=== PATIENT | female | born 1955 | race Caucasian/White ===

== ENCOUNTER 2020-08-27 14:34 | Outpatient (CLI) | payer BC, SELFPAY ==
--- NOTE | ~2020-08-27 | DEXA_ITS ---
Bone Density Report Name: Liyah Shah Age: 64 Sex: Female Ethnicity: White Date of : 1955 Indication: osteopenia; height loss; hysterectomy; Referring Provider: SHEN PLAZA Study: Bone densitometry was performed. Exam Date: August 27, 2020 Accession number: [id number] Bone Density: Region BMD T-score Z-score Classification AP Spine (L1-L4) 0.853 -1.8 0.0 Osteopenia Femoral Neck (Left) 0.663 -1.7 -0.2 Osteopenia Total Hip (Left) 0.833 -0.9 0.3 Normal Total Hip Bilateral Avg 0.843 -0.8 0.4 Normal Femoral Neck (Right) 0.660 -1.7 -0.2 Osteopenia Total Hip (Right) 0.851 -0.7 0.5 Normal World Health Organization criteria for BMD impression classify patients as: Normal (T-score at or above -1.0), Osteopenia (T-score between -1.0 and -2.5), or Osteoporosis (T-score at or below -2.5). 10-year Fracture Risk(1): Major Osteoporotic Fracture 9.3% Hip Fracture 1.1% Reported Risk Factors: [place] (), Neck BMD=0.660, BMI=24.8 (1) FRAX(R) Version 3.08. Fracture probability calculated for an untreated patient. Fracture probability may be lower if the patient has received treatment. Previous Exams: Region Exam Age BMD T-score BMD Change BMD Change Date g/cm2 vs Baseline vs Previous AP Spine(L1-L4) 08/27/2020 64 0.853 -1.8 0.015(1.8%) 0.015(1.8%) 12/08/2017 61 0.838 -1.9 Total Hip(Left) 08/27/2020 64 0.833 -0.9 -0.070(-7.8%)* -0.070(-7.8%)* 12/08/2017 61 0.903 -0.3 Total Hip(Right) 08/27/2020 64 0.851 -0.7 -0.077(-8.3%)* -0.077(-8.3%)* 12/08/2017 61 0.928 -0.1 *Denotes significance at 95% confidence level, LSC for AP Spine = 0.022 g/cm2, LSC for Total Hip = 0.027 g/cm2 Clinical Information Provided by Patient: Has used the following medications: Vitamin D, Calcium Has the following medical conditions: Hysterectomy Patient maximum height was 67 Menopause Age: 51 Drinks caffeinated beverages Onset of menses at age 11 Number of children 2 Impression: The patient has low bone mass, based on the Total Spine T-score. The patient has an estimated ten-year risk of hip fracture of 1.1% and an estimated ten-year risk of major fracture of 9.3%, based on the WHO FRAX algorithm. The BMD for the Total Hip(Left) decreased, changing by -7.8% since the last DXA exam. The BMD for the Total Hip(Right) decreased, changing by -8.3% since the last DXA exam. Discussion: BONE DENSITY IS LOW AT ONE OR MORE SKELETAL SITES. Th
== END 2020-08-27 14:35 | disposition home or self-care (01) ==
LOC: ANHIMG 14:39
PROVIDERS: PCP Internal Medicine; Visit Provider Internal Medicine
DX: Z78.0 Asymptomatic menopausal state (principal); M85.852 Other specified disorders of bone density and structure, left thigh; M85.851 Other specified disorders of bone density and structure, right thigh
CPT/HCPCS: 77080

== ENCOUNTER → 2021-06-22 02:57 | Outpatient (CLI) | payer MEDICARE, OTHER, SELFPAY ==
[2021-06-22 22:41] LABS: SARS-CoV-2 RNA PCR Negative
== END ==
PROVIDERS: PCP Internal Medicine; Visit Provider Internal Medicine
DX: Z20.822 Contact with and (suspected) exposure to COVID-19 (principal)
CPT/HCPCS: C9803; U0003; U0005

== ENCOUNTER 2021-06-29 09:34 | Outpatient (CLI) | payer MEDICARE, OTHER, SELFPAY ==
--- NOTE | ~2021-06-29 | MM_ITS ---
EXAMINATION: MM screening kaur BI w michelle HISTORY: Screening mammogram TECHNIQUE: Craniocaudal and mediolateral oblique 3-D tomosynthesis images were obtained and synthetic 2-D images were generated. CAD analysis was submitted and interpreted. COMPARISON: 10/09/2019, 09/05/2018, 09/22/2017 bilateral digital screening mammogram examinations BREAST PARENCHYMAL COMPOSITION: There are scattered areas of fibroglandular density. FINDINGS: There is no evidence of suspicious mass, calcification, or architectural distortion to sugg est malignancy in either breast. There has been no suspicious interval change. IMPRESSION: 1. No mammographic evidence of malignancy. 2. Recommend routine screening mammography in one year. BI-RADS Category 1: Negative Reviewed, dictated and finalized at location A.
== END 2021-06-29 09:35 | disposition home or self-care (01) ==
LOC: ANHIMG 09:38
PROVIDERS: PCP Internal Medicine
DX: Z12.31 Encounter for screening mammogram for malignant neoplasm of breast (principal)
CPT/HCPCS: 77063; 77067

== ENCOUNTER → 2021-08-01 03:48 | Outpatient (CLI) | payer MEDICARE, OTHER, SELFPAY ==
[2021-08-01 19:59] LABS: SARS-CoV-2 RNA PCR Negative
== END ==
PROVIDERS: PCP Internal Medicine; Visit Provider Internal Medicine
DX: Z20.822 Contact with and (suspected) exposure to COVID-19 (principal)
CPT/HCPCS: C9803; U0003; U0005

== ENCOUNTER → 2022-05-09 00:14 | Outpatient (CLI) | payer MEDICARE, OTHER, SELFPAY ==
[2022-05-09 11:19] LABS: SARS-CoV-2 RNA PCR Negative
== END ==
PROVIDERS: PCP Internal Medicine; Visit Provider Internal Medicine
DX: R68.89 Other general symptoms and signs (principal); Z20.822 Contact with and (suspected) exposure to COVID-19
CPT/HCPCS: C9803; U0003; U0005

== ENCOUNTER 2022-09-02 09:16 | Outpatient (CLI) | payer MEDICARE, OTHER, SELFPAY ==
--- NOTE | ~2022-09-02 | DEXA_ITS ---
Bone Density Report Name: RADHA BIRMINGHAM Age: 66 Sex: Female Ethnicity: White Date of : 1955 Indication: osteopenia; height loss; hysterectomy; postmenopausal Referring Provider: AIDEN DONOHUE Study: Bone densitometry was performed. Exam Date: September 02, 2022 Accession number: [id number] Bone Density: Region BMD T-score Z-score Classification AP Spine(L1-L4) 0.867 -1.6 0.2 Osteopenia Femoral Neck (Left) 0.672 -1.6 0.0 Osteopenia Total Hip (Left) 0.806 -1.1 0.2 Osteopenia Femoral Neck (Right) 0.651 -1.8 -0.2 Osteopenia Total Hip (Right) 0.846 -0.8 0.5 Normal Total Hip Mean 0.826 -1.0 0.4 Normal World Health Organization criteria for BMD impression classify patients as: Normal (T-score at or above -1.0), Osteopenia (T-score between -1.0 and -2.5), or Osteoporosis (T-score at or below -2.5). 10-year Fracture Risk(1): Major Osteoporotic Fracture 10% Hip Fracture 1.4% Reported Risk Factors: [place] (), Neck BMD=0.651, BMI=25.5 (1) FRAX(R) Version 3.08. Fracture probability calculated for an untreated patient. Fracture probability may be lower if the patient has received treatment. Previous Exams: Region Exam Age BMD T-score BMD Change BMD Change Date g/cm2 vs Baseline vs Previous AP Spine (L1-L4) 09/02/2022 66 0.867 -1.6 0.029 (3.4%)* 0.013 (1.6%) 08/27/2020 64 0.853 -1.8 0.015 (1.8%) 0.015 (1.8%) 12/08/2017 61 0.838 -1.9 Total Hip(Left) 09/02/2022 66 0.806 -1.1 -0.097 (-10.8% -0.027 (-3.2%) 08/27/2020 64 0.833 -0.9 -0.070 (-7.8%) -0.070 (-7.8%) 12/08/2017 61 0.903 -0.3 Total Hip(Right) 09/02/2022 66 0.846 -0.8 -0.082 (-8.9%) -0.005 (-0.6%) 08/27/2020 64 0.851 -0.7 -0.077 (-8.3%) -0.077 (-8.3%) 12/08/2017 61 0.928 -0.1 *Denotes significance at 95% confidence level, LSC for AP Spine = 0.022 g/cm2, LSC for Total Hip = 0.027 g/cm2 Clinical Information Provided by Patient: Has the following medical conditions: Hysterectomy Patient maximum height was 67 Menopause Age: 51 Onset of menses at age 13 Number of children 2 Impression: The patient has low bone mass, based on the Right Femoral Neck T-score. The patient has an estimated ten-year risk of hip fracture of 1.4% and an estimated ten-year risk of major fracture of 10%, based on the WHO FRAX algorithm. No significant bone loss was observed. Discussion: BONE DENSITY IS LOW AT ONE OR MORE SKELE
--- NOTE | ~2022-09-02 | MM_ITS ---
EXAMINATION: MM screening kaur BI w michelle HISTORY: Screening mammogram TECHNIQUE: Craniocaudal and mediolateral oblique 3-D tomosynthesis images were obtained and synthetic 2-D images were generated. CAD analysis was submitted and interpreted. COMPARISON: 06/29/2021, 10/09/2019, 09/05/2018 bilateral screening mammogram examinations BREAST PARENCHYMAL COMPOSITION: There are scattered areas of fibroglandular density. FINDINGS: There is no evidence of suspicious mass, calcification, or architectural distortion to sugg est malignancy in either breast. There has been no suspicious interval change. IMPRESSION: 1. No mammographic evidence of malignancy. 2. Recommend routine screening mammography in one year. BI-RADS Category 1: Negative Reviewed, dictated and finalized at location A. F INSPECTOR
== END 2022-09-02 09:17 | disposition home or self-care (01) ==
PROVIDERS: PCP Internal Medicine; Visit Provider Nurse Practitioner
DX: Z12.31 Encounter for screening mammogram for malignant neoplasm of breast (principal); Z78.0 Asymptomatic menopausal state; M85.89 Other specified disorders of bone density and structure, multiple sites
CPT/HCPCS: 77063; 77067; 77080

== ENCOUNTER 2023-12-31 14:32 | Outpatient (CLI) | payer MEDICARE, OTHER, SELFPAY ==
[2023-12-31 15:19] LABS: Influenza A QL RT-PCR Negative (Negative); Influenza B QL RT-PCR Negative (Negative); RSV RNA, RT-PCR Negative (Negative); SARS-CoV-2 RNA PCR Positive (Negative)
== END 2023-12-31 14:33 | disposition home or self-care (01) ==
LOC: ANHLAB 14:33
PROVIDERS: PCP Nurse Practitioner Family; Visit Provider Nurse Practitioner Family
DX: R52 Pain, unspecified (principal); R05.9 Cough, unspecified; J06.9 Acute upper respiratory infection, unspecified
CPT/HCPCS: 87637

== ENCOUNTER 2024-01-21 08:42 | Inpatient (IN) | payer MEDICARE, OTHER, SELFPAY ==
[2024-01-21] VITALS (31 sets, daily range): BP systolic 104–139; BP diastolic 56–95; PULSE 64–208; RESP 14–30; TEMP 36.7–37.2; O2SAT 94–100
--- NOTE | 2024-01-21 | ECHO_ITS ---
Patient Info Name: Liyah Shah Age: 68 years : 1955 Gender: Female Ht: 66 in Wt: 158 lbs BSA: 1.84 m2 HR: 90 bpm BP: 116 / 71 mmHg Heart Rhythm: Atrial Fibrillation Technical Quality: Fair Exam Date: 01/21/2024 4:21 PM Exam Location: Echo Lab Patient Status: Inpatient Admit Date: 01/21/2024 Staff Ordering Physician: Fermin Rashid APRN [employer] Instructor: Tala Mcmullen RDCS Attending Provider: Kameron Amaya MD Referring Physician: Rachid HERRERA; Exam Type: CA echo doppler color flow Study Info Indications - afib rvr, know mitral valve disease Complete two-dimensional, color flow and Doppler transthoracic echocardiogram is performed. Summary 1. Left ventricular chamber dimension is normal. 2. Left ventricular systolic function is normal, estimated at >70%. 3. There is mildly increased left ventricular wall thickness. 4. Right ventricular systolic function is normal. 5. Left atrial chamber dimension is mildly enlarged. 6. Right atrial chamber dimension is mildly enlarged. 7. There is mild mitral valve regurgitation. 8. There is mild tricuspid valve regurgitation. Left Ventricle Left ventricular chamber dimension is normal. Left ventricular systolic function is normal, estimated at >70%. There is mildly increased left ventricular wall thickness. Right Ventricle Right ventricular chamber dimension is normal. Right ventricular systolic function is normal. Left Atria Left atrial chamber dimension is mildly enlarged. Right Atria Right atrial chamber dimension is mildly enlarged. Atrial Septum Intact interatrial septum visualized by color flow imaging. Aortic Valve The aortic valve is trileaflet. There is mild aortic valve sclerosis. There is no aortic valve stenosis. There is no aortic valve regurgitation. Pulmonic Valve The pulmonic valve is not well visualized. There is no pulmonic regurgitation. Mitral Valve There is mild mitral valve regurgitation. Tricuspid Valve There is mild tricuspid valve regurgitation. Pericardium/Pleural The pericardium appears epicardial fat pad. There is no pericardial effusion. Inferior Vena Cava Normal inferior vena cava with >50% collapse upon inspiration consistent with normal right atrial pressure, 3 mmHg. Aorta The aortic root size at the sinus of Valsalva is normal. Left Ventricular Outflow Tract Name Value Normal LVOT 2D LVOT Diameter 2.0 cm LVOT Doppler LVOT Peak Gradient 2 mmHg LVOT Mean Gradient 1 mmHg LVOT VTI 14 cm LVOT VTI/AV VTI Ratio 0.7 LVOT Stroke Volume 41 ml LVOT CO 3.5 l/min LVOT CI 1.9 l/min/m2 Pulmonic Valve Name Value Normal RVOT Doppler RVOT Peak Gradient 1 mmHg PV Doppler
--- NOTE | ~2024-01-21 | US_ITS ---
Duplex Sonography of the left extremity: Indication: Pain, tachycardia Findings: Sagittal and transverse B-mode images as well as color-flow imaging were performed on the l eft femoral and popliteal veins. B-mode examination was done without and with compression in the tra nsverse plane. There is good visualization of the common femoral, proximal profunda femoral, superfi cial femoral, greater saphenous, and popliteal veins. Normal flow was seen on color-flow imaging. No rmal compressibility was demonstrated. Visualized calf veins are also patent. Impression: No evidence of deep vein thrombosis involving the left lower extremity. Reviewed, dictated and finalized at location . Impression: No evidence of deep vein thrombosis involving the left lower extremity.
--- NOTE | ~2024-01-21 | CT_ITS ---
Clinical Indication: Pulmonary embolus CT Scan of the Chest with Contrast: Technique: Contiguous sections were acquired throughout the chest after intravenous administration of 100 cc of Omnipaque 350. Dose reduction technique was used on this scan by utilizing automated expos ure control and iterative reconstruction technique. The dose-length product (DLP) was 225.66 mGy-cm. Findings: There is no evidence of any significant mediastinal, hilar or axillary lymphadenopathy. There is no f illing defect in the pulmonary arterial tree to suggest pulmonary embolus. There is no evidence of ao rtic dissection or aneurysm. There is no evidence of pleural or pericardial effusion. The lungs are clear. No pulmonary nodules or infiltrates are noted. Images through the upper abdomen reveal no abnormalities. Impression: No evidence of pulmonary embolus, aortic dissection, or aortic aneurysm. Clear lungs. Reviewed, dictated and finalized at [facility]. Impression: No evidence of pulmonary embolus, aortic dissection, or aortic aneurysm. Clear lungs.
--- NOTE | ~2024-01-21 | XR_ITS ---
Portable chest x-ray Comparison: 09/10/2018 Clinical History: Chest pain Findings: Lungs are clear, without focal consolidation or pleural effusion. Cardiomediastinal silho uette is stable. Bones and soft tissues are unremarkable. Impression: Clear lungs. Reviewed, dictated and finalized at location . Impression: Clear lungs.
--- NOTE | 2024-01-21 08:48 | ECG_ITS ---
SEE SCANNED COPY FOR CONFIRMED REPORT MTDD
--- NOTE | 2024-01-21 08:50 | ED.WEAKNESS ---
HPI - Weakness General Chief complaint: Weakness Stated complaint: weakness Time Seen by Provider: 01/21/24 08:48 History of Present Illness HPI Narrative: Patient is a 68-year-old female with history of hypertension, hyperlipidemia here with generalized weakness and racing heart. She states she woke up around 7:00 a.m. feeling like her heart was racing and diffusely weak. She notes that she went and had her normal morning bowel movement and it did not change any of her symptoms. Prompted her to present to the emergency department today. She denies any history of abnormal heart rhythm. She denies any history of NM. She has been compliant with her blood pressure medications. No recent travel or surgeries. She does note that she has been recovering from COVID-19 which she came down with approximately 2 weeks ago, did take a course of Paxlovid. She has been taking fuoi-kzk-mndoeni mucus suppressants with Gulfasin and dextromethorphan, last took last night. She additionally did note some palpable visible vessels in her left upper leg this morning, has never noticed these in the past. She was having some left leg cramping yesterday. No history of PE/DVT. Related Data Home Medications Medication Instructions Recorded Confirmed calcium carbonate 600 mg-vitamin 1 tablet PO HS 08/04/19 01/21/24 D3 20 mcg (800 unit) chewable tablet (Caltrate 600 plus D) cholecalciferol (vitamin D3) 50 2,000 unit PO DAILY 08/04/19 01/21/24 mcg (2,000 unit) capsule multivitamin (Daily Multi-Vitamin 1 tablet PO DAILY 05/06/21 01/21/24 tablet) vit C 50 mg-E 15 unit-zinc cit 4.5 1 tablet PO DAILY 03/02/22 01/21/24 mg-lutein 2.5 mg-zeaxan chew tablet ([facility]) omega 9-cgv-izl-fish oil 1,200 mg 1 cap PO DAILY 07/05/23 01/21/24 (144 mg-216 mg) capsule (Fish Oil) dextromethorphan-guaifenesin 20 1 tablet PO Q4H PRN cough 01/21/24 01/21/24 mg-400 mg tablet estradiol 0.01% (0.1 mg/gram) 1 applic vaginal 2XW 01/21/24 01/21/24 vaginal cream Allergies Allergy/AdvReac Type Severity Reaction Status Date / Time No Known Allergies Allergy Verified 01/21/24 08:43 Review of Systems Review of Systems: All systems reviewed & are unremarkable except as noted in HPI and below PMFSH Past Medical History Medical History Essential (primary) hypertension (07/08/19) Hyperlipidemia (07/08/19) Osteopenia Vitamin D deficiency Surgical History Surgical History Hx of bladder repair surgery 2020 Family History Family History Mother Arthritis Scoliosis Hypertension Sibling Patient's brother is in good health Patient's sister is in good health Hypertension Father Acute myocardial infarction Daughter Hypothyroidism Social History Social History Smoking status: Never smoker Second hand tobacco smoke exposure: No Alcohol intake: current Drinks per week: 1 Alcohol use details: occasionally Substance use: never Substance use type: does not use Do You Feel Safe in your Home?: Yes Lack of Transportation: No Lack of Food: Never True Current Housing: I Have Housing Concerned About Future Housing: No Difficulty Paying Gas/Electric Bills: No Difficulty Paying for Meds: No Currently Unemployed: No Education: High School Diploma/GED Difficulty w/ Childcare or Family Care: No Spiritual care concerns: No Exam Narrative: GENERAL: Well-appearing, well-nourished, and in no acute distress. HEAD: Normocephalic, atraumatic. EYES: PERRLA and EOMI. ENT: Nares clear. Mucous membranes moist. NECK: Supple. CHEST: Clear to auscultation. No respiratory distress. HEART: Tachycardic, irregularly irregular. Normal peripheral pulses. ABDOMEN: Soft, nontender, n
[2024-01-21] MEDS: SODIUM CHLORIDE 0.9% IV 1,000 ML 999 ML IV CONT ×2 (08:58→11:45)
[2024-01-21] MEDS: dilTIAZem HCl INJ 25 MG/5 ML VIAL 15 MG IV PUSH (09:06)
[2024-01-21 09:08] LABS: Basophils Absolute Auto 0.1 K/mm3 (0.0-0.1); Basophils Percent Auto 0.9 % (0.2-1.2); Eosinophils Absolute Auto 0.4 K/mm3 (0-0.3); Eosinophils Percent Auto 5.9 % (0-4.4); Hematocrit 44.9 % (37.0-47.0); Hemoglobin 15.2 g/dL (12.0-15.0); Immature Granulocyte Absolute 0.01 K/mm3 (0.00-0.031); Immature Granulocyte Percent A 0.2 % (0-0.5); Lymphocytes Absolute Auto 1.29 K/mm3 (0.9-3.2); Lymphocytes Percent Auto 19.5 % (18.3-44.2); Mean Corpuscular HGB Conc 33.9 g/dl (32-36); Mean Corpuscular Hemoglobin 31.3 pg (26-34); Mean Corpuscular Volume 92.6 fl (80-100); Mean Platelet Volume 10.3 fl (7.4-10.4); Monocytes Absolute Auto 0.6 K/mm3 (0.1-0.6); Monocytes Percent Auto 8.3 % (2.6-8.5); Neutrophils Absolute Auto 4.3 K/mm3 (1.3-6.7); Neutrophils Percent Auto 65.2 % (45.5-73.1); Platelet Count Result 219 k/mm3 (150-375); Red Blood Count 4.85 M/mm3 (4.2-5.4); White Blood Count 6.6 K/mm3 (4.5-10.0)
[2024-01-21] MEDS: dilTIAZem HCl INJ 25 MG/5 ML VIAL 10 MG IV PUSH (09:14)
[2024-01-21 09:18] LABS: Alanine Aminotransferase 36 U/L (6-35); Albumin Level 4.8 g/dL (3.5-5.1); Alkaline Phosphatase 75 U/L (38-126); Anion Gap 13 mmol/L (4-12); Aspartate Amino Transferase 37 U/L (14-36); Bilirubin,Total 1.2 mg/dL (0.2-1.3); Blood Urea Nitrogen 21 mg/dL (7-17); Carbon Dioxide 17 mmol/L (22-30); Chloride 108 mmol/L (98-107); Estimated CRCL calculation 49 ml/min; Estimated Glomerular Filt Rate > 60; Glucose 165 mg/dL (65-110); Potassium 3.9 mmol/L (3.4-5.0); Sodium 138 mmol/L (137-145)
[2024-01-21] MEDS: dilTIAZem HCL 60 MG TABLET PO (09:25)
--- NOTE | 2024-01-21 09:26 | PC.NURSE ---
Pt attempting to provide urine sample on bedside commode
[2024-01-21 09:28] LABS: INR 0.9; Prothrombin Time 12.8 Seconds (11.1-14.7)
[2024-01-21 09:29] LABS: D Dimer 0.53 ug/mL (<0.48); Partial Thromboplastin Time 31.4 Seconds (22.3-36.8)
[2024-01-21 09:30] LABS: NT Pro B Type Natriuretic Pept 119 pg/mL (19.9-100); Troponin I 0.021 ng/mL (0.000-0.034)
--- NOTE | 2024-01-21 09:31 | PC.NURSE ---
Pt unable to get urine sample at this time
[2024-01-21] MEDS: dilTIAZem 100 MG/100 ML 100 MG/100 ML BAG IV CONT (09:53)
--- NOTE | 2024-01-21 11:26 | ECG_ITS ---
SEE SCANNED COPY FOR CONFIRMED REPORT MTDD
[2024-01-21 11:30] LABS: Free T4 Free Thyroxine Reflex 1.38 ng/dL (0.78-2.19)
[2024-01-21 11:56] LABS: Appearance Urine Clear (Clear); Bilirubin Urine Negative (Negative); Blood Urine Negative (Negative); Color Urine Yellow (Yellow); Glucose Urine UA Negative (Negative); Ketones Urine Negative (Negative); Leukocyte Esterase Ur Negative LEU/UL (Negative); Nitrate Urine Negative (Negative); Protein Urine Negative (Negative); Specific Grav Ur 1.019 (1.001-1.035); Urobilinogen Urine 0.2 mg/dL (<2.0); pH Urine 7.5 (5.0-9.0)
[2024-01-21 12:00] LABS: Add Urine Microscopic? NO
[2024-01-21 12:19] LABS: Troponin I 0.126 ng/mL (0.000-0.034)
[2024-01-21 12:24] LABS: Total Triiodothyronine (T3) 1.52 NG/ML (0.97-1.69)
[2024-01-21] MEDS: APIXABAN 5 MG TABLET PO ×2 (12:51→20:54)
--- NOTE | 2024-01-21 12:53 | PM.IMHP ---
H&P: HPI History of Present Illness Date/Time: 01/21/24 12:53 Chief Complaint: rapid heart rate, palpitations Narrative: This is a 68-year-old female patient who reports she is overall healthy a past medical history of hypertension hyperlipidemia is admitted to the hospital for AFib with RVR. Patient has no prior history of atrial fibrillation. She states that this morning when she woke up she felt her heart racing and was generally not feeling well. Patient states she has had odd sensations inside her body later defined as palpitations. Patient denied chest pain nausea vomiting fever chills. She reports periodically cough with clear mucus that she states comes from seasonal allergies. Patient is requesting cough drops. Patient reports that she recovered from COVID onset 2 weeks ago status post course of Paxlovid. Patient also complained left lower extremity venous prominence and discomfort that now appears to be resolved. In the emergency department patient was noted to be in atrial fibrillation with rapid ventricular response with a maximum heart rate of 208 per patient report. Patient had temporary slowdown in heart rate status post vagal maneuvers but probably return to the 160s. Initial EKG heart rate was 169. Patient received oral and IV Cardizem and was started on a Cardizem drip currently running at 15 milligrams/hour. Patient was started on Eliquis in the emergency department which will be continued. CTA was obtained while in the emergency department in negative for PE. Venous Doppler left lower extremity was also negative for DVT. Cardiology was consulted by telephone will likely see patient tomorrow. Initial troponin was normal at 0.021, 2nd troponin was elevated at 0.126 and 3rd troponin with minimal increases 0.159. This elevation is likely due to myocardial demand given tachycardia and less likely acute coronary syndrome. Review of Systems Review of Systems: All systems reviewed & are unremarkable except as noted in HPI and below [facility] Past Medical History Medical History Essential (primary) hypertension (07/08/19) Hyperlipidemia (07/08/19) Osteopenia Vitamin D deficiency Surgical History Surgical History Hx of bladder repair surgery 2020 Family History Family History Mother Arthritis Scoliosis Hypertension Sibling Patient's brother is in good health Patient's sister is in good health Hypertension Father Acute myocardial infarction Daughter Hypothyroidism Social History Social History Smoking status: Never smoker Second hand tobacco smoke exposure: No Alcohol intake: current Alcohol use details: occasionally Substance use: never Substance use type: does not use Lack of Transportation: No Lack of Food: Never True Current Housing: Decline to Answer Concerned About Future Housing: Decline to Answer Difficulty Paying Gas/Electric Bills: No Difficulty Paying for Meds: No Currently Unemployed: No Education: High School Diploma/GED Difficulty w/ Childcare or Family Care: No Meds Home Medications and Allergies Home Medications Medication Instructions Recorded Confirmed Type calcium carbonate 600 mg-vitamin 1 tablet PO DAILY 08/04/19 01/21/24 History D3 20 mcg (800 unit) chewable tablet (Caltrate 600 plus D) cholecalciferol (vitamin D3) 50 2,000 unit PO DAILY 08/04/19 01/21/24 History mcg (2,000 unit) capsule multivitamin (Daily Multi-Vitamin 1 tablet PO DAILY 05/06/21 01/21/24 History tablet) vit C 50 mg-E 15 unit-zinc cit 4.5 1 tablet PO DAILY 03/02/22 01/21/24 History mg-lutein 2.5 mg-zeaxan chew tablet (YesWeAd) losartan 50 mg tablet 50 mg PO DAILY #90 tabs 04/18/23 01/21/24 Rx omega 3-d
--- NOTE | 2024-01-21 13:02 | PC.NURSE ---
ordered pt lunch tray to be sent to IMU
--- NOTE | 2024-01-21 14:49 | ADMGEN ---
This patient, Liyah Shah, was admitted to IMU Room 213-01 on 01/21/24 at 1325. Patient/family oriented to hospital policies and general routines including ID bracelet, bed and alarms, visiting hours, pain management, procedures, bathroom and other care routines, personal items, smoking policy, room service/diet, and visiting hours. Information on how to activate the Rapid Response Team has been discussed. Patient/Family are encouraged to report perceived risks to care and to ask questions if they do not understand what they are told or what they should do.
[2024-01-21 15:07] LABS: Troponin I 0.159 ng/mL (0.000-0.034)
[2024-01-21] MEDS: dilTIAZem 100 MG/100 ML 100 MG/100 ML BAG 15 MG IV CONT ×2 (15:23→20:57)
[2024-01-21] MEDS: BENZOCAINE/MENTHOL (*BKC) 18 EA LOZENGE 1 LOZENGE PO (17:59)
[2024-01-22] VITALS (12 sets, daily range): BP systolic 121–129; BP diastolic 62–67; PULSE 55–89; RESP 18–20; TEMP 36.4–36.8; O2SAT 95–98
--- NOTE | 2024-01-22 02:25 | PC.NURSE ---
2235- Order from Dr. Meza to decrease diltiazem drip to 5. Order edited in DEC, rate changed on current bag already hung. Unable to document on drip on DEC until new bag is hung. Q2 BPs documented in vital signs.
[2024-01-22] MEDS: dilTIAZem 100 MG/100 ML 100 MG/100 ML BAG IV CONT (05:00)
--- NOTE | 2024-01-22 05:00 | ECG_ITS ---
SEE SCANNED COPY FOR CONFIRMED REPORT MTDD
--- NOTE | 2024-01-22 07:18 | PM.CNCAR ---
Assessment and Plan Assessment and plan (1) Atrial fibrillation with RVR: Code(s): I48.91 - Unspecified atrial fibrillation Status: Acute Assessment and Plan: New onset atrial fibrillation with RVR. Initial EKG showed atrial fibrillation with rate 169 bpm. Chronicity is unknown, but by her history probably started early yesterday morning. She spontaneously converted to sinus rhythm this morning around 0300. She has a CHADs2 Vasc score of 3 (gender, age, HTN). Anticoagulation is indicated and has already been started Will start low dose Toprol XL Echo is pending If echo is unremarkable and she maintains sinus rhythm, she can be discharged home from a cardiac standpoint Will arrange for outpatient follow up in our office (2) Elevated troponin: Code(s): R79.89 - Other specified abnormal findings of blood chemistry Status: Acute Assessment and Plan: Troponin 0.021, 0.126, and 0.159 in the setting of tachycardia. Likely does not represent ACS. She denies having any chest pain. She does have risk factors for CAD; cannot rule out underlying CAD. Will arrange for outpatient stress testing. (3) Hyperlipidemia: Onset Date: 07/08/19 Code(s): E78.5 - Hyperlipidemia, unspecified Status: Acute Assessment and Plan: Continue statin. (4) Essential (primary) hypertension: Onset Date: 07/08/19 Code(s): I10 - Essential (primary) hypertension Status: Acute Assessment and Plan: Blood pressure at goal. History of Present Illness History of Present Illness Consult date/time: 01/22/24 07:18 Requesting physician: Eve Ulloa MD Consult reason: atrial fibrillation Reason For Visit: Afib with RVR/On Cardizem GTT Narrative: Liyah Shah is a very pleasant 68 year old female with hypertension and hyperlipidemia. She presented to the emergency department yesterday morning with a chief complaint of palpitations. She woke up with a sensation of her heart pounding in her chest and when it didn't subside she decided to come to the hospital for evaluation. She was found to be in atrial fibrillation with rapid ventricular response. She was given IV diltiazem which did slow her heart rate down and she spontaneously converted to sinus rhythm early this morning. She denied feeling any chest pain or shortness of breath while in atrial fibrillation. She denies any cardiac history aside from mitral valve prolapse. At the time of my evaluation she is sitting comfortably on the edge of the bed eating breakfast and has no complaints. Review of Systems Review of Systems: All systems reviewed & are unremarkable except as noted in HPI and below PMFSH Past Medical History Medical History Essential (primary) hypertension (07/08/19) Hyperlipidemia (07/08/19) Osteopenia Vitamin D deficiency Surgical History Surgical History Hx of bladder repair surgery 2020 Family History Family History Mother Arthritis Scoliosis Hypertension Sibling Patient's brother is in good health Patient's sister is in good health Hypertension Father Acute myocardial infarction Daughter Hypothyroidism Social History Social History Smoking status: Never smoker Second hand tobacco smoke exposure: No Alcohol intake: current Drinks per week: 1 Alcohol use details: occasionally Substance use: never Substance use type: does not use Do You Feel Safe in your Home?: Yes Lack of Transportation: No Lack of Food: Never True Current Housing: I Have Housing Concerned About Future Housing: No Difficulty Paying Gas/Electric Bills: No Difficulty Paying for Meds: No Currently Unemployed: No Education: High School Diploma/GED Difficulty
[2024-01-22 08:27] LABS: Hematocrit 41.5 % (37.0-47.0); Hemoglobin 13.9 g/dL (12.0-15.0); Mean Corpuscular HGB Conc 33.5 g/dl (32-36); Mean Corpuscular Hemoglobin 31.7 pg (26-34); Mean Corpuscular Volume 94.5 fl (80-100); Mean Platelet Volume 10.2 fl (7.4-10.4); Platelet Count Result 173 k/mm3 (150-375); Red Blood Count 4.39 M/mm3 (4.2-5.4); Red Cell Distribution Width 12.2 % (11.5-14.5); White Blood Count 5.8 K/mm3 (4.5-10.0)
[2024-01-22 08:41] LABS: Albumin Level 4.4 g/dL (3.5-5.1); Anion Gap 5 mmol/L (4-12); Blood Urea Nitrogen 14 mg/dL (7-17); Calcium 9.4 mg/dL (8.4-10.2); Carbon Dioxide 24 mmol/L (22-30); Chloride 110 mmol/L (98-107); Estimated CRCL calculation 62 ml/min; Estimated Glomerular Filt Rate > 60; Glucose 111 mg/dL (65-110); Magnesium 2.3 mg/dL (1.6-2.3); Phosphorus 3.2 mg/dL (2.5-4.5); Potassium 4.5 mmol/L (3.4-5.0); Sodium 139 mmol/L (137-145)
[2024-01-22] MEDS: APIXABAN 5 MG TABLET PO (09:03)
[2024-01-22] MEDS: METOPROLOL SUCCINATE EXT REL 25 MG TABCR PO (09:03)
--- NOTE | 2024-01-22 10:46 | PM.DS ---
DS: Admitting Diagnosis Discharge Date 01/22/2024 Admitting Diagnosis atrial fibrillation with RVR, elevated troponin, non rheumatic mitral valve disorder, essential primary hypertension, hyperlipidemia DS: Discharge Diagnosis Discharge Diagnosis (1) Atrial fibrillation with RVR: Code(s): I48.91 - Unspecified atrial fibrillation Status: Acute (2) Elevated troponin: Code(s): R79.89 - Other specified abnormal findings of blood chemistry Status: Acute (3) Nonrheumatic mitral valve disorder, unspecified: Code(s): I34.9 - Nonrheumatic mitral valve disorder, unspecified Status: Acute (4) Essential (primary) hypertension: Onset Date: 07/08/19 Code(s): I10 - Essential (primary) hypertension Status: Acute (5) Hyperlipidemia: Onset Date: 07/08/19 Code(s): E78.5 - Hyperlipidemia, unspecified Status: Acute DS: Summary Hospital Course Hospital Course: this is a 68-year-old female patient had COVID about 2 weeks ago still having cough and sinus symptoms but woke up on 01/20 palpitations heart racing and overall not feeling well. She was evaluated in the emergency department found to be in AFib RVR as high as 208 beats per minute. She was treated Cardizem and admitted to the IMU on a Cardizem drip. Around 3:00 a.m. this morning patient spontaneously converted back to sinus rhythm. Cardiology saw patient today initiated low-dose metoprolol XL. Echocardiogram showed mitral valve and tricuspid valve regurgitation but otherwise unremarkable. Eliquis was initiated due to chads Vasc score of 3. Prescriptions for Eliquis and metoprolol were written and patient discharged home with Cardiology follow-up. Status at Discharge Cognitive/behavioral status at discharge: awake alert oriented and very pleasant Functional status at discharge: independent ambulation Overall status at discharge: patient is back to baseline Time Spent with Patient Time attestation: Total time spent providing and/or coordinating discharge services: 35 minutes Time spent: Greater than 30 minutes Exam Narrative: GENERAL: Well-appearing, well-nourished, and in no acute distress. HEAD: Normocephalic, atraumatic. ENT:? Mucous membranes moist. CHEST: Clear to auscultation.? No respiratory distress. HEART: regular rate, regular rhythm, sinus rhythm on bedside telemetry rate of 64 on evaluation per my interpretation.? Normal peripheral pulses. ABDOMEN: Soft, nontender, nondistended. EXTREMITIES: Normal range of motion. No peripheral edema. Negative Homans. SKIN: Warm dry normal color NEURO: Alert and oriented x3. No focal neuro abnormalities noted PSYCH: Normal mood and affect DS: Data Data Completed and Pending Completed studies during hospitalization: echocardiogram, venous Doppler lower extremity left chest CTA, chest x-ray Labs on day of discharge: Labs from last 24 hours 01/22/24 01/21/24 01/21/24 08:13 14:33 11:36 WBC 5.8 RBC 4.39 Hgb 13.9 Hct 41.5 MCV 94.5 MCH 31.7 MCHC 33.5 RDW 12.2 Plt Count 173 MPV 10.2 Sodium 139 Potassium 4.5 Chloride 110 H Carbon Dioxide 24 Anion Gap 5 BUN 14 D Creatinine 0.70 Estim Creat Clear Calc 62 Estimated GFR > 60 Glucose 111 H Calcium 9.4 Phosphorus 3.2 Magnesium 2.3 Troponin I 0.159 H* D 0.126 H* D Albumin 4.4 Free T4 Total T3 Urine Color Urine Appearance Urine pH Ur Specific Metcalf Urine Protein Urine Glucose (UA) Urine Ketones Ur Blood (Man) Urine Nitrate Urine Bilirubin Urine Urobilinogen Leukocyte Esterase Rfl 01/21/24 01/21/24 11:18 08:57 WBC RBC Hgb Hct MCV MCH MCHC RDW Plt Count MPV Sodium Potassium Chloride Carbon Dioxide Anion Gap BUN Creatinine Estim Creat Clear Calc Estimated GFR Glucose Calcium Phosphorus Magnesium
== END 2024-01-22 14:05 | disposition home or self-care (01) | DRG 310 ==
LOC: ANHED 09:46 → ANHIMU 13:17
PROVIDERS: Admitting Provider Internal Medicine; Emergency Provider Student in an Organized Health Care Education/Training Program; PCP Nurse Practitioner Family; Visit Provider Nurse Practitioner
DX: I48.91 Unspecified atrial fibrillation (principal); E55.9 Vitamin D deficiency, unspecified; E78.5 Hyperlipidemia, unspecified; I10 Essential (primary) hypertension; I08.1 Rheumatic disorders of both mitral and tricuspid valves; M85.80 Other specified disorders of bone density and structure, unspecified site; R79.89 Other specified abnormal findings of blood chemistry; Z86.16 Personal history of COVID-19
CPT/HCPCS: 36415; 71045; 71275; 80053; 80069; 81003; 83735; 83880; 84439; 84443; 84480; 84484; 85025; 85027; 85380; 85610; 85730; 93005; 93306; 93971; 96361; 96365; 96366; 99285; A9270; J7030; Q9967

== ENCOUNTER 2024-02-07 13:55 | Outpatient (CLI) | payer MEDICARE, OTHER, SELFPAY ==
--- NOTE | ~2024-02-07 | MM_ITS ---
EXAMINATION: MM screening kaur BI w michelle HISTORY: Screening mammogram TECHNIQUE: Craniocaudal and mediolateral oblique 3-D tomosynthesis images were obtained and synthetic 2-D images were generated. CAD analysis was submitted and interpreted. COMPARISON: 09/02/2022, 06/29/2021 bilateral screening mammogram examinations BREAST PARENCHYMAL COMPOSITION: There are scattered areas of fibroglandular density. FINDINGS: There is no evidence of suspicious mass, calcification, or architectural distortion to sugg est malignancy in either breast. There has been no suspicious interval change. IMPRESSION: 1. No mammographic evidence of malignancy. 2. Recommend routine screening mammography in one year. BI-RADS Category 1: Negative Reviewed, dictated and finalized at location A.
== END 2024-02-07 13:56 | disposition home or self-care (01) ==
PROVIDERS: PCP Nurse Practitioner Family; Visit Provider Nurse Practitioner Family
DX: Z12.31 Encounter for screening mammogram for malignant neoplasm of breast (principal)
CPT/HCPCS: 77063; 77067

== ENCOUNTER 2024-09-03 08:34 | Outpatient (CLI) | payer MEDICARE, OTHER, SELFPAY ==
--- NOTE | ~2024-09-03 | DEXA_ITS ---
Bone Density Report Name: RADHA BIRMINGHAM Age: 68 Sex: Female Ethnicity: White Date of : 1955 Indication: osteopenia; height loss; hysterectomy; Referring Provider: LUIS ROD Study: Bone densitometry was performed. Exam Date: September 03, 2024 Accession number: [id number] Bone Density: Region BMD T-score Z-score Classification AP Spine(L4) 0.974 -0.8 1.4 Normal Femoral Neck (Left) 0.679 -1.5 0.2 Osteopenia Total Hip (Left) 0.942 0.0 1.4 Normal Femoral Neck (Right) 0.661 -1.7 0.0 Osteopenia Total Hip (Right) 0.969 0.2 1.6 Normal Total Hip Mean 0.955 0.1 1.5 Normal World Health Organization criteria for BMD impression classify patients as: Normal (T-score at or above -1.0), Osteopenia (T-score between -1.0 and -2.5), or Osteoporosis (T-score at or below -2.5). 10-year Fracture Risk(1): Major Osteoporotic Fracture 10.0% Hip Fracture 1.4% Reported Risk Factors: [place] (), Neck BMD=0.661, BMI=27.0 (1) FRAX(R) Version 3.08. Fracture probability calculated for an untreated patient. Fracture probability may be lower if the patient has received treatment. Previous Exams: Region Exam Age BMD T-score BMD Change BMD Change Date g/cm2 vs Baseline vs Previous AP Spine (L4) 09/03/2024 68 0.974 -0.8 0.118 (13.8%)* 0.085 (9.6%)* 09/02/2022 66 0.888 -1.6 0.033 (3.8%)* -0.015 (-1.6%) 08/27/2020 64 0.903 -1.4 0.048 (5.6%)* 0.048 (5.6%)* 12/08/2017 61 0.856 -1.9 Total Hip(Left) 09/03/2024 68 0.942 0.0 0.039 (4.3%)* 0.136 (16.9%)* 09/02/2022 66 0.806 -1.1 -0.097 (-10.8% -0.027 (-3.2%) 08/27/2020 64 0.833 -0.9 -0.070 (-7.8%) -0.070 (-7.8%) 12/08/2017 61 0.903 -0.3 Total Hip(Right) 09/03/2024 68 0.969 0.2 0.041 (4.4%)* 0.123 (14.5%)* 09/02/2022 66 0.846 -0.8 -0.082 (-8.9%) -0.005 (-0.6%) 08/27/2020 64 0.851 -0.7 -0.077 (-8.3%) -0.077 (-8.3%) 12/08/2017 61 0.928 -0.1 *Denotes significance at 95% confidence level, LSC for AP Spine = 0.022 g/cm2, LSC for Total Hip = 0.027 g/cm2 Clinical Information Provided by Patient: Has used the following medications: Vitamin D, Calcium Has the following medical conditions: Hysterectomy Patient maximum height was 67 Menopause Age: 51 No regular weight bearing exercise Onset of menses at age 13 Number of children 2 Impression: The patient has low bone mass, based on the Right Femoral Neck T-score. The patient has an estimated ten-year risk of hip fracture of 1.4% and an estimated ten-year risk of major fracture of 10%, based on the WHO FRAX algorithm. No significant bone loss was observed. Discussion: BONE DENSITY IS LOW AT ONE OR MORE SKELETAL SITES. This patient's lowest T-score is low at one or more skeletal sites. It meets the World Health Organization's (WHO) criteria for ?low bone mass? (T-score between -1.0 and -2.5). The patient's 10-year risk of fracture as calculated by FRAX is less than the threshold where pharmacological therapy is recommended by the National Osteoporosis Foundation (NOF). However, all treatment decisions require clinical judgment and consideration of individual patient factors, including patient preferences, comorbidities, previous drug use, risk factors not captured in the FRAX model (e.g., frailty, falls, vitamin D deficiency, increased bone turnover, interval significant decline in bone density) and possible under or overestimation of fracture risk by FRAX. The patient should follow a healthful lifestyle (good nutrition with adequate calcium and vitamin D, and appropriate weight-bearing exercise). Follow-Up: Consider repeating this study in 2 to 3 years to reassess this patient's status, or sooner if there is some new clinical indication. Reported by: ALONSO on 09/03/2024 9:28:00 AM. Reviewed, dictated and finalized at location Vika RUTLEDGE
== END 2024-09-03 08:35 | disposition home or self-care (01) ==
PROVIDERS: PCP Obstetrics & Gynecology; Visit Provider Nurse Practitioner Family
DX: Z78.0 Asymptomatic menopausal state (principal); M85.852 Other specified disorders of bone density and structure, left thigh; M85.851 Other specified disorders of bone density and structure, right thigh
CPT/HCPCS: 77080

== ENCOUNTER 2025-03-27 08:56 | Outpatient (CLI) | payer MEDICARE, OTHER, SELFPAY ==
--- NOTE | ~2025-03-27 | MM_ITS ---
EXAMINATION: MM screening kaur BI w michelle HISTORY: Screening TECHNIQUE: Craniocaudal and mediolateral oblique 3-D tomosynthesis images were obtained and synthetic 2-D images were generated. CAD analysis was submitted and interpreted. COMPARISON: Comparison to multiple prior studies sequentially, with oldest reviewed study dated 09/07. BREAST PARENCHYMAL COMPOSITION: Not dense: There are scattered areas of fibroglandular density. FINDINGS: There is no evidence of suspicious mass, calcification, or architectural distortion to sugg est malignancy in either breast. There has been no suspicious interval change. IMPRESSION: 1. No mammographic evidence of malignancy. 2. Recommend routine screening mammography in one year. BI-RADS Category 1: Negative Reviewed, dictated and finalized at location A.
== END 2025-03-27 08:57 | disposition home or self-care (01) ==
LOC: ANHIMG 09:02
PROVIDERS: PCP Nurse Practitioner Family; Visit Provider Nurse Practitioner Family
DX: Z12.31 Encounter for screening mammogram for malignant neoplasm of breast (principal)
CPT/HCPCS: 77063; 77067

== ENCOUNTER 2025-07-23 08:39 | Emergency (ER) | payer MEDICARE, OTHER, SELFPAY ==
--- NOTE | ~2025-07-23 | XR_ITS ---
EXAMINATION: XR hand RT min 3V, 07/23/2025 9:20 CDT HISTORY: right hand injury; POSTERIOR BRUISING SWELLING COMPARISON: No comparisons available. Findings: Remote appearing fracture of the distal radius with intra-articular extension, the fracture appears corticated, no acute fracture is identified Moderate degenerative changes Soft tissues unremarkable. Impression: No acute fracture or malalignment. Reviewed, dictated and finalized at location P. Impression: No acute fracture or malalignment.
[2025-07-23 08:41] VITALS: BP 166/67; PULSE 76; RESP 16; TEMP 36.4; O2SAT 99
--- OUTSIDE RECORDS SUMMARY | 2025-07-23 08:59 | XMS_ITS | Encounter Summary ---
Author Organization [facility] Address [address] [place] [address] Care Team Providers Care Family Preservation Worker Name Role Phone Unavailable Primary Care Provider Unavailabl e Encounter Details Date Type Department Care Team (Late st Contact Info) Description 08/27/2018 Lab Requisition [facility] [address] [facility] [place] [address] Tiara Robbins MD [address] [facility] [address] [place] [address] Social History Tobacco Use Types Packs/Day Years Used Date Smoking Tobacco: Never Assessed Comments Unknown Sex and Gender Information Value Date Recorded Sex Assigned at Not on file Legal Sex Female 6:32 AM FLIGHT OPERATIONS ENGINEER Gender Identity Not on file Sexual Orientation Not on file documented as of this encounter Plan of Treatment Not on file documented as of this encounter Procedures Procedure Name Priority Date/Time Associated Diagnosis Comments DERMATOPATH TECHNICAL REPORT Routine 08/23/2018 12:00 AM FLIGHT OPERATIONS ENGINEER documented in this encounter Results * DERMATOPATH TECHNICAL REPORT (08/23/2018 12:00 AM FLIGHT OPERATIONS ENGINEER) Case Report Dermatopathology Report Case: [id number] Authorizing Provider: Tiara Robbins MD Collected: 08/23/2018 12:00 AM Pathologist: Zenaida Altman MD Received: 08/27/2018 07:01 AM Specimen: Skin, left anterior inferior foss 8 12:16 PM FLIGHT OPERATIONS ENGINEER DERMATOPATHOLOGY LABORATORY Addendum 1 At the request of the diagnosing physician, the technical component for MART-1/Melan A was performed by [facility] Dermatopathology Laboratory. 12:16 PM [facility]ERMAT[facility]ATHOLOG[facility]OR[facility] Addendum electronically signed by Zenaida Altman MD on 09/02/2018 at 1216 FLIGHT OPERATIONS ENGINEER Clinical History R/O Nevus, irregular border, irregular color 12:16 PM [facility]MAT[facility]ATH[facility] Gross Description Specimen A: Received is one formalin filled container labeled with the patient's name and designated left anterior inferior foss. The specimen consists of a shave biopsy measuring 6x6x1 mm. Jar 0. [facility] Dermatopathology [facility] performed the technical component only. 12:16 PM [facility]ATH[facility] Embedded Images 12:16 PM [facility]ATH[facility] DISCLAIMER An external and internal positive and negative controls are appropriate for the histochemical, immunohistochemical and immunofluorescence stain(s) in this case (if any), except where stated explicitly. The performance characteristics of the stain(s) cited in this report were developed and its performance characteristic determined by the Dermatopathology Laboratory at [facility]. These tests need not be, and therefore are not, approved by the [place] Food and Drug Administration. The tests are used for clinical purposes. 12:16 PM [facility]ERMATOPATH[facility]ORATORY at 1328 FLIGHT OPERATIONS ENGINEER Pathology/Cytolog y TISSUE SPECIMEN FROM SKIN / Unknown 08/23/2018 08/27/2018 7:01 AM FLIGHT OPERATIONS ENGINEER Tiara Robbins MD LAB - PATHOLOGY/CYTOLOGY OR DERABLES Edited Result - Final DERMATOPATHOLOGY LABORATORY [facility] - Department of Dermatology [address] [facility] [address] [place] [address], [facility] [phone] documented in this encounter Visit Diagnoses Not on filedocumented in this encounter
--- OUTSIDE RECORDS SUMMARY | 2025-07-23 08:59 | XMS_ITS | Clinical Summary ---
Author Organization [facility] Address [address] [place] [address] Phone Care Team Providers Care Maintenance Worker Municipal Name Role Phone Unavailable Primary Care Provider Unavailabl e Allergies No known active allergies Medications losartan (COZAAR) 50 MG Tablet Take 50 mg by mouth daily. Active Social History Tobacco Use Types Packs/Day Years Used Date Smoking Tobacco: Never Assessed Comments Unknown Sex and Gender Information Value Date Recorded Sex Assigned at Not on file Legal Sex Female 11:51 AM DIRECTOR OF DESIGN Gender Identity Not on file Sexual Orientation Not on file Plan of Treatment Health Maintenance Due Date Last Done Comments Hepatitis C Virus (HCV) Screening 1955 TdaP Immunization 1955 Cologuard 12/10/2000 Colonoscopy 12/10/2000 Colorectal Cancer Screening 12/10/2000 Immunochemical Fecal Occult Blood 12/10/2000 Pneumococcal Immunization (5 0+ years) (1 of 1 - PCV) 12/10/2005 Zoster Immunization (1 of 2) 12/10/2005 Influenza Immunization (#1) 2025 SARS-COV-2 Immunization ( season) 2025 Respiratory Syncytial Virus (RSV) Immunization (Adult) (1 - 1-dose 75+ series) 12/10/2030 Hepatitis B Immunization Aged Out No longer eligible based on patient's age to complete this topic Human Papillomavirus (HPV) Immunization Aged Out No longer eligible b ased on patient's age to complete this topic Meningococcal Immunization (ACWY) Aged Out No longer eligible based on patient's age to complete this topic Rotavirus Immunization Aged Out No lo nger eligible based on patient's age to complete this topic
--- OUTSIDE RECORDS SUMMARY | 2025-07-23 08:59 | XMS_ITS | Clinical Summary ---
Author Organization [facility] Address [address] [place] [address] Care Team Providers Care Oil Well Driller Name Role Phone Unavailable Primary Care Provider Unavailabl e Source Comments [facility],non-owned Affiliates and Associated Physician Practices is amultiple site organization consisting of ambulatory clinics and hospital sitesin [place], [place], [place] and [place]. This disclosure is being madepursuant to the Care Everywhere program and may not contain all information available regarding this patient. Last updated 18.[facility] Social History Tobacco Use Types Packs/Day Years Used Date Smoking Tobacco: Never Assessed Comments Unknown Sex and Gender Information Value Date Recorded Sex Assigned at Not on file Legal Sex Female 6:32 AM STEWARDING SUPERVISOR Gender Identity Not on file Sexual Orientation Not on file Plan of Treatment Health Maintenance Due Date Last Done Comments BONE DENSITY TESTING 1955 COLOGUARD (AGES 45-75) - COL ON CA SCREENING 1955 COLON MONITORING 1955 COLONOSCOPY - COLON CA SCREENING 1955 CT COLONOGRAPHY - COLON CA SCREENING 1955 Colorectal Cancer Screening 1955 FIT - COLON CA SCREENING 1955 FLEX SIG - COLON CA SCREENING 1955 LIPID TESTING 1955 MAMMOGRAM 1955 HEPATITIS C SCREENING 12/06/1973 DTAP/TDAP/TD VACCINES (1 - Tdap) 12/10/1974 PNEUMOCOCCAL VACCINE 50+ (1 of 1 - PCV) 12/10/2005 ZOSTER VACCINE (1 of 2) 12/10/2005 DEPRESSION SCREENING 10/08/2024 COVID-19 VACCINE (1 - 2023-2 5 season) 2025 INFLUENZA VACCINE (#1) 2025 Respiratory Syncytial Virus (RSV) Vaccine Pt: or over 60 yrs (1 - 1-dose 75+ series) 12/10/2030 HEPATITIS B VACCINE Aged Out No longe r eligible based on patient's age to complete this topic HIB VACCINE Aged Out No longer eligi ble based on patient's age to complete this topic HPV VACCINE Aged Out No longer eligi ble based on patient's age to complete this topic MENINGOCOCCAL (Group B) VACC INE SHARED DECISION-MAKING Aged Out No longer eligibl e based on patient's age to complete this topic MENINGOCOCCAL GROUPS A/C/Y/W VACCINE Aged Out No longer eligible b ased on patient's age to complete this topic Insurance [facility]
--- OUTSIDE RECORDS SUMMARY | 2025-07-23 08:59 | XMS_ITS | Clinical Summary ---
Author Organization [facility] [address] [facility] [facility] Address [address] [place] [address] Phone Care Team Providers Care Foil Operator Name Role Phone Tal Cash MD Unavailable [phone] Beatrice Bowman NP Primary Care Provider [phone] Allergies No known active allergies Medications cholecalcifero l, vitamin D3, (VITAMIN D3 ORAL) Vitamin D3 1qd Active folic acid/multivit- min/lutein (CENTRUM SILVER ORAL) Take by mouth daily Active vit C/E/zinc/lutei n/zeaxanthin (OCUVITE EYE HEALTH ORAL) Take by mouth daily Active fluticasone propionate (FLONASE) 50 mcg/actuation nasal spray 2 sprays daily 4 Active aspirin 81 mg enteric coated tablet Take 1 tablet (81 mg total) by mouth daily 90 tablet 3 4 Active losartan (COZAAR) 50 mg tablet Take 1 tablet (50 mg total) by mouth daily 4 Active rosuvastatin (CRESTOR) 20 mg tablet TAKE 1 TABLET(20 MG) BY MOUTH DAILY 90 tablet 1 5 Active metoprolol XL (TOPROL-XL) 25 mg extended release tablet TAKE 1 TABLET(25 MG) BY MOUTH EVERY MORNING 90 tablet 3 5 Active Eliquis 5 mg tablet TAKE 1 TABLET(5 MG) BY MOUTH EVERY 12 HOURS 180 tablet 2 5 Active Eliquis 5 mg tablet TAKE 1 TABLET(5 MG) BY MOUTH EVERY 12 HOURS 180 tablet 2 5 07/07/20 25 Discontinued metoprolol XL (TOPROL-XL) 25 mg extended release tablet TAKE 1 TABLET(25 MG) BY MOUTH EVERY MORNING 90 tablet 5 07/06/20 25 Discontinued Active Problems Problem Noted Date Diagnosed Date Coronary artery disease invo lving [place] coronary artery of 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 Xray of the right shoulder revealed AC joint OA with hypertrophy of the acromion process. Has limited active internal ROM and pain, as well as pain with active abduction and cross arm adduction. Denies any other joint pain or stiffness. Based on symptoms and exam as well as x-ray findings, likely that she has a rotator cuff tenonitis. There is no clinical evidence for a rheumatological disorder at this time. Recommend aleve otc 2 tabs BID prn pain. Continue physical therapy. If no benefit with physical therapy, then could consider following with ortho for further evaluation and treatment. Follow up as needed. Seen with Dr. Cash. Assessment & Plan (03/31/2019 9:59 AM CDT): Patient presents with right shoulder pain for the past 3 months. Has limited active internal ROM and pain, as well as pain with active abduction and cross arm adduction. She is unable to sleep on her right side due to pain, however denies any injury. Has taken ibuprofen a few time with some benefit. Denies any other joint pain or stiffness. Symptoms and exam are suspicious for rotator cuff tendonitis vs bursitis. Will order appropriate serologies and radiographs to further evaluate. Recommend aleve otc 200mg BID prn pain. Will give referral for PT of right shoulder. If no benefit by next visit, then may consider an MRI. Follow up in 4 weeks. Sooner if needed. Seen with Dr. Cash. Edema of lower extremity 09/24/2018 Electrocardiogram abnormal 09/24/2018 Essential hypertension 09/24/2018 Mitral valve prolapse 09/24/2018 Palpitations 09/24/2018 Immunizations Immunization Administration Dates Next Due Flucelvax Influenza Quad 10/14/2019 Influenza, Quadrivalent, Beverly l Culture-based MDCK, Preservative Free, Antibiotic Free, Intramuscular 07/13/2020 Influenza, Trivalent, Cell C ulture-based MDCK, Preservative Free, Antibiotic Free, Intramuscular 07/13/2020,10/14/2019 ZOSTER Recombinant 10/27/2020,07/13/2020 Surgical History Surgery Date Site/Laterality Comments HYSTERECTOMY 10/08/1990 - 10/07/1991 DR. DENG MCINTOSH VAGINA SURGERY 10/08/2002 - 10/07/2003 TVT PLACEMENT; DR. DENG MCINTOSH Medical History Medical History Date Comments Hypertension Mitral valve disease Family History Medical History Relation Name Comments Coronary artery disease Father J.R. Hypertension Father J.R. Hypertension Mother M.D. Scoliosis Mother M.D. Relation Name Status Comments Father J.R. Mother M.D. Social History Tobacco Use Types Packs/Day Years Used Date Smoking Tobacco: Never Cigarettes Smokeless Tobacco: Never Tobacco Cessation:Counseling Given: Not Answered Alcohol Use Standard Drinks/Week Comments Yes 0 (1 standard drink = 0.6 oz pur e alcohol) RARE Comments Unknown Sex and Gender Information Value Date Recorded Sex Assigned at Not on file Legal Sex Female 8:45 AM LABORER SHAFT SINKING Gender Identity Not on file Sexual Orientation Not on file Obstetrics History Last Filed Vital Signs Vital Sign Reading Time Taken Comments Blood Pressure 130/66 12/08/2024 10:46 AM LABORER SHAFT SINKING Pulse 77 12/08/2024 10:46 AM LABORER SHAFT SINKING Temperature - - Respiratory Rate - - Oxygen Saturation 96% 12/08/2024 10: 46 AM LABORER SHAFT SINKING Inhaled Oxygen Concentration - - Weight 72.9 kg (160 lb 12.8 oz) 025 10:46 AM LABORER SHAFT SINKING Height 163.8 cm (5' 4.49) 12/08/2024 1 0:46 AM LABORER SHAFT SINKING Body Mass Index 27.19 12/08/2024 10:46 AM LABORER SHAFT SINKING Plan of Treatment Health Maintenance Due Date Last Done Comments Breast Cancer Screening-Mammogram 1955 Colon Cancer Screening-Colonoscopy 1955 Depression Screening 1955 Fall Risk Assessment 1955 Hepatitis C Screening 1955 Osteoporosis Screening-Bone Density Scan 1955 DTaP/Tdap/Td Vaccine (1 - Tdap) 12/10/1966 Hepatitis B Screening 12/10/1973 Pneumococcal vaccine 65+ (1 of 1 - PCV) 12/10/2005 Well Visit 65+ 12/10/2020 Covid-19 Vaccine (2 - 2024-2 6 season) 2025 12/10/2020 Influenza Vaccine (#1) 2025 0, 07/13/2020, 10/14/2019, Additional history exists Zoster Vaccine Completed 10/27/2020, 07/13/2020 Insurance [facility] MEDICARE [place] [facility] [place] MEDICARE [facility] Care Teams Foil Operator Relationship Specialty Start Date End Date Beatrice Bowman NP [address] [place] [address] PCP - General Nurse Practitioner 01/25/24 Tal Cash MD [address] [place] [address] Consulting Physician Rheumatology 02/26/19
--- NOTE | 2025-07-23 10:05 | ED.EXTPRO ---
HPI - Extremity Problem General Chief complaint: Extremity Injury, Upper Stated complaint: R hand injury Time Seen by Provider: 07/23/25 09:13 Source: patient Mode of arrival: ambulatory Limitations: no limitations History of Present Illness HPI Narrative: This is a 69-year-old female that presents to the emergency department after an injury to the right hand this morning. Reports her dresser fell down the steps. Her hand got caught in between the dresser and the stair railing briefly. Reports bruising and pain to the area. Denies decreased ROM or numbness. Related Data Home Medications ?Medication ?Instructions ?Recorded ?Confirmed ?Last Taken ?Type calcium 600 mg (as carbonate)-vit 1 tablet PO HS 08/04/19 05/21/25 Unknown History D3 20 mcg (800 unit) chewable tablet (Caltrate plus D) multivitamin (Daily Multi-Vitamin 1 tablet PO DAILY 05/06/21 05/21/25 Unknown History tablet) vit C 50 mg-E 15 unit-zinc cit 4.5 1 tablet PO DAILY 03/02/22 05/21/25 Unknown History mg-lutein 2.5 mg-zeaxan chew tablet (CheckInPage) estradiol 0.01% (0.1 mg/gram) 1 applic vaginal 2XW 01/21/24 05/21/25 01/20/24 History vaginal cream aspirin 81 mg tablet,delayed 81 mg PO DAILY 06/24/24 05/21/25 Unknown History release (Adult Aspirin Regimen) Allergies Allergy/AdvReac Type Severity Reaction Status Date / Time No Known Allergies Allergy Verified 07/23/25 09:02 Review of Systems Review of Systems: All systems reviewed & are unremarkable except as noted in HPI and below PMFSH Past Medical History Medical History (Updated 07/23/25 @ 10:07 by Minnie Anthony PA-C) Atrial fibrillation with RVR Osteopenia Essential (primary) hypertension (07/08/19) Hyperlipidemia (07/08/19) Vitamin D deficiency Surgical History Surgical History Hx of bladder repair surgery 2020 Family History Family History Mother Arthritis Scoliosis Hypertension Sibling Patient's brother is in good health Patient's sister is in good health Hypertension Father Acute myocardial infarction Daughter Hypothyroidism Social History Social History Smoking status: Never smoker Second hand tobacco smoke exposure: No Alcohol intake: current Drinks per week: 1 Alcohol use details: occasionally Substance use: never Substance use type: does not use Do You Feel Safe in your Home?: Yes Lack of Transportation: No Lack of Food: Never True Current Housing: I Have Housing Concerned About Future Housing: No Difficulty Paying Gas/Electric Bills: No Difficulty Paying for Meds: No Currently Unemployed: No Education: High School Diploma/GED Difficulty w/ Childcare or Family Care: No Living arrangements: with family Occupation/Education: retired Gender identity (if verbalized by the patient): Female Spiritual care concerns: No Agree to blood products: No Exam Narrative: GENERAL: Well-appearing, well-nourished, and in no acute distress. HEAD: Normocephalic, atraumatic. EYES: EOMI. EXTREMITIES: Normal range of motion. Mild edema and bruising about the right hand dorsal surface over the 2nd and 3rd MCP joints. Small abrasion on the dorsal aspect of the hand. Normal radial pulse. Normal sensation SKIN: Warm, dry, no rash. NEURO: No focal deficits. Alert and oriented x3. PSYCH: Normal mood and affect Course Vital Signs Vital signs: Vital Signs Temperature 97.6 F 07/23/25 08:41 Pulse Rate 76 07/23/25 08:41 Respiratory Rate 16 07/23/25 08:41 Blood Pressure 166/67 H 07/23/25 08:41 Pulse Oximetry 99 07/23/25 08:41 Oxygen Delivery Room Air 07/23/25 08:41 Temperature 97.6 F 07/23/25 08:41 Pulse Rate 76 07/23/25 08:41 Respiratory Rate 16 07/23/25 08:41 Blood Pressure 166/67 H 07/23/25 08:41 Pulse Oximetry 99 07/23/25 08:41 Oxygen Delivery Room Air 07/23/25 08:41 MDM - Extremity (Nontraumatic) MDM Narrative Medical decision making narrative: This is a 69 year old female that presents to the ER for right hand injury sustained this morning. She is neurovascularly intact. Right hand x-ray without acute osseous abnormalities. Patient instructed to rest, ice and take uqgc-gfv-euclhth pain medication needed. She is to follow up with primary provider. She was given warnings to return to the ER Differential Diagnosis Differential diagnosis: Likely other (contusion, fracture) Imaging Data Radiologist's impression: ITS Impressions Hand X-Ray 07/23/25 09:35 Impression: No acute fracture or malalignment. Critical Care Time Critical Care Time Critical Care Time: No Discharge Plan Discharge Clinical Impression: Abrasion Contusion of hand, right Qualifiers: Encounter type: initial encounter Qualified Code(s): S60.221A - Contusion of right hand, initial encounter Patient Disposition: Home Condition: Stable Instructions: Contusion in Adults (ED), Abrasion (ED) Additional Instructions: Return to the emergency department if you experience fever, redness and swelling of your hand, weakness, numbness, your hand feels cold, or any other symptoms that are concerning to you. Rest. Elevate. Ice to the area. Over the counter pain medication as needed Follow up with primary care doctor Patient Language: Trinidadian Prescriptions: No Action multivitamin [Daily Multi-Vitamin] Tablet 1 tablet PO DAILY Ocuvite Eye Health 50 mg-15 unit- 4.5 mg-2.5 mg tablet,chewable 1 tablet PO DAILY aspirin [Adult Aspirin Regimen] 81 mg tablet,delayed release (DR/EC) 81 mg PO DAILY estradiol 0.01 % (0.1 mg/gram) cream 1 applic VAGINAL 2XW Patient Comments: Every Sunday and Eliquis 5 mg Tablet 5 mg PO Q12HR Qty: 60 2RF metoprolol succinate [Toprol XL] 25 mg Tablet Extended Release 24 Hr 25 mg PO QAM Qty: 30 2RF Caltrate 600 plus D 600 mg (1,500 mg)-800 unit tablet,chewable 1 tablet PO HS fluticasone propionate [Flonase Allergy Relief] 50 mcg/actuation spray,suspension 2 spray intranasal DAILY Qty: 48 1RF Rx Instructions: administer into each nostril losartan 50 mg tablet 50 mg PO DAILY Qty: 90 3RF benzonatate 100 mg capsule See Rx Instructions .ROUTE .COMPLEX Qty: 60 0RF Dose Instruction: TAKE 1 CAPSULE BY MOUTH THREE TIMES DAILY NEEDED FOR COUGH Rx Instructions: TAKE 1 CAPSULE BY MOUTH THREE TIMES DAILY NEEDED FOR COUGH Follow-up/Referrals: Beatrice Bowman APRN [Primary Care Provider, Internal Medicine]
--- OUTSIDE RECORDS SUMMARY | 2025-07-23 10:11 | XMS_ITS | Clinical Summary ---
Author Organization [facility] Address [address] [place] [address] Care Team Providers Care Tractor Sweeper Operator Name Role Phone Unavailable Primary Care Provider Unavailabl e Source Comments [facility],non-owned Affiliates and Associated Physician Practices is amultiple site organization consisting of ambulatory clinics and hospital sitesin [place], [place], [place] and [place]. This disclosure is being madepursuant to the Care Everywhere program and may not contain all information available regarding this patient. 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 [place] Address: [address] [id number]
--- OUTSIDE RECORDS SUMMARY | 2025-07-23 10:11 | XMS_ITS | Clinical Summary ---
Author Organization [facility] Address [address] [place] [address] Phone Care Team Providers Care Air Brake Operator Name Role Phone Unavailable Primary Care Provider Unavailabl e Allergies No known active allergies Medications losartan (COZAAR) 50 MG Tablet Take 50 mg by mouth daily. 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
--- OUTSIDE RECORDS SUMMARY | 2025-07-23 10:11 | XMS_ITS | Encounter Summary ---
Author Organization [facility] Address [address] [place] [address] Care Team Providers Care Computer Forwarding System Markup Clerk Name Role Phone Unavailable Primary Care Provider Unavailabl e Encounter Details Date Type Department Care Team (Late st Contact Info) Description 08/27/2018 Lab Requisition [facility] [address] [place] [address] Tiara Robbins MD [address] [place] [address] Social History Tobacco Use Types Packs/Day Years Used Date Smoking Tobacco: Never Assessed Comments Unknown Sex and Gender Information Value Date Recorded Sex Assigned at Not on file 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 Gender Identity Not on file Sexual Orientation Not on file documented as of this encounter Plan of Treatment Not on file documented as of this encounter Procedures Procedure Name Priority Date/Time Associated Diagnosis Comments DERMATOPATH TECHNICAL REPORT Routine 08/23/2018 12:00 AM DEPARTMENT SUPERVISOR documented in this encounter Results * DERMATOPATH TECHNICAL REPORT (08/23/2018 12:00 AM DEPARTMENT SUPERVISOR) Case Report Dermatopathology Report Case: [id number] Authorizing Provider: Tiara Robbins MD Collected: 08/23/2018 12:00 AM Pathologist: Zenaida Altman MD Received: 08/27/2018 07:01 AM Specimen: Skin, left anterior inferior foss 8 12:16 PM DEPARTMENT SUPERVISOR DERMATOPATHOLOGY LABORATORY Addendum 1 At the request of the diagnosing physician, the technical component for MART-1/Melan A was performed by [facility]ermat[facility]. 12:16 PM [facility]ERMAT[facility]ATH[facility]Y [facility] Addendum electronically signed by Zenaida Altman MD on 09/02/2018 at 1216 DEPARTMENT SUPERVISOR Clinical History R/O Nevus, irregular border, irregular color 12:16 PM [facility] DERMATOPATHOLOGY [facility] Gross Description Specimen A: Received is one formalin filled container labeled with the patient's name and designated left anterior inferior foss. The specimen consists of a shave biopsy measuring 6x6x1 mm. Jar 0. [facility] performed the technical component only. 12:16 PM [facility] DERMATOPATHOLOGY [facility] Embedded Images 12:16 PM [facility]ERMATOPATH[facility] DISCLAIMER An external and internal positive and negative controls are appropriate for the histochemical, immunohistochemical and immunofluorescence stain(s) in this case (if any), except where stated explicitly. The performance characteristics of the stain(s) cited in this report were developed and its performance characteristic determined by the Dermatopathology Laboratory at [facility]. These tests need not be, and therefore are not, approved by the [place] Food and Drug Administration. The tests are used for clinical purposes. 12:16 PM [facility] DERMATOPATHOLOGY LABORATORY at [address]8 DEPARTMENT SUPERVISOR Pathology/Cytolog y TISSUE SPECIMEN FROM SKIN / Unknown 08/23/2018 08/27/2018 7:01 AM DEPARTMENT SUPERVISOR Tiara Robbins MD LAB - PATHOLOGY/CYTOLOGY OR DERABLES Edited Result - Final DERMATOPATHOLOGY LABORATORY [facility] - Department of Dermatology [address] [place] [address], [facility] [phone] documented in this encounter Visit Diagnoses Not on filedocumented in this encounter
--- OUTSIDE RECORDS SUMMARY | 2025-07-23 10:11 | XMS_ITS | Data Portability ---
Author Organization [facility] , [facility] Address [address] [place] [address] Assessment Encounter Date Assessment Date Assessment LastModified by Organization Details LastModified Time 08/23/2022 08/23/2022 Annual clinical product specialist: No Pap per ACOG/ ASCCP guidelines based on age and clinical hx post hysterectomy status Mammo-has been scheduledfor later this month Colonoscopy 2020, s/p polyp removal DEXA scheduled Immunization - pneumococcal vaccine recommended with PCP Mild cystocoele: encouraged Kegel's and to avoid lifting heavy objects/ straining. kthanapandan Not available 10/17/2022 18:59:43 11/14/2022 11/14/2022 DEXA scan report 08/29 reviewed: Continues to have Osteopenia- T score: Spine -1.6 (-1.8 in 2019), hip R -0.8 (-0.7 in 2020) and hip L -1.1 (-0.9 in 2019) Mostly stable, with deterioration in the L hip. Recommend continuation of management per PCP. Encouraged adequate Ca and Vit D supplementation. Bone building exercises recommended. Fall precautions. Regular f/u screening DEXA. kthanapandan Not available 01/13/2023 23:00:35 Plan of Treatment Reminders Order Date Submit Date Provider Last Modified By Organization Details Last Modified Time Details Appointments None recorded. Lab None recorded. Referral physical therapist referral 2021 022 CYDNEY Not available 13:24:49 Procedures None recorded. Surgeries None recorded. Imaging MAMMO, screening, digital, bilateral [address], [address], [place], [address], 3 15:06:04 Medication Orders estradiol 0.01% (0.1 mg/gram) vaginal cream 2024 025 [id number], [address], [place], [place], [id number], 5 09:27:47 estradiol 0.01% (0.1 mg/gram) vaginal cream 2021 022 [facility] #[id number], [address], [place], [place], [id number], 12:08:50 Patient TargetsNo targets recorded. Patient Instructions Encounter Date Encounter Id Patient Instructions Last Modified By Organization Details Last Modified Time 08/23/2022 [id number] protect bone with calcium and vitamin D kthanapandan Not available 10/17/2022 18:58:56 A healthy lifestyle: care instructions kthanapandan Not available 10/17/2022 18:58:56 calcium and vitamin D combination kthanapandan Not available 10/17/2022 18:58:56 depression (women only) kthanapandan Not available 10/17/2022 18:58:56 eating healthy foods: care instructions kthanapandan Not available 10/17/2022 18:58:56 exercise program: getting started kthanapandan Not available 10/17/2022 18:58:56 06/21/2023 [id number] abuse/domestic violence education Not available 06/21/2023 12:10:52 eating healthy foods: care instructions Not available 06/21/2023 12:10:52 weight management education Not available 06/21/2023 12:10:53 Reason for Referral Physical Therapist Referral for Right side sciatica Referring Physician: Chavez Rosa, CHIEF TELEPHONE OPERATOR, Encounter Date: 11/19/2021 Results Created Date Observation Date Name Description Value Unit Range Abnormal Flag Note LastModifiedBy Organization Detail LastModifiedTime 09/19/20 22 09/02/2022 MAMMO , scree sahra, digit al, bilat eral No observ ation record ed. [email or web address] [facility] [address], [place], [address], 01/08/2023 01:41:01 09/09/20 24 09/03/2024 bone densi ty No observ ation record ed. [email or web address] [facility] [address], [place], [address], 09/11/2024 17:16:18 Result Notes None recorded. Problems Name Problem SNOMED Code Status Onset Date Resolution Date Notes Provider Name and Address Organization Details Recorded Time Bone density finding 342310774 Completed 201710/19/2020 Other specifie d disorder s of bone density and structur e, unspecif ied site; Progress : Stable Added By: Emily Lockwood Add to Current Problems : NO ProblemS tatus: Resolve Not Available [facility] 2 21:42:02 Disorder of bone and articula r cartilag e 501784291 Completed 201710/19/2020 Osteopen ia; Location : None Progress : Stable Added By: Emily Lockwood Add to Current Problems : YES ProblemS tatus: Current Osteopen ia; Progress : Stable Added By: Emily Lockwood Add to Current Problems : NO ProblemS tatus: Resolve Not Available [facility] 2 21:42:03 Hormone replacem ent therapy Completed 201710/19/2020 Hormone replacem ent therapy; Progress : Stable Added By: Marii Victoria Add to Current Problems : NO ProblemS tatus: Resolve Post-men opausal HRT; Location : None Progress : Stable Added By: Marii Victoria Add to Current Problems : YES ProblemS tatus: Current Not Available [facility] 2 21:42:02 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 29371207 Completed 201710/19/2020 Arrhythm ia, unspecif ied; Progress : Stable Added By: Nima Bahena Add to Current Problems : NO ProblemS tatus: Resolve Not Available [facility] 2 21:42:02 Ectopic rhythm 12698101 Completed 201710/19/2020 Arrhythm ia, unspecif ied; Location : None Progress : Stable Added By: Nima Bahena Add to Current Problems : YES ProblemS tatus: Current Other specifie d cardiac arrhythm ias; Progress : Stable Added By: Nima Bahena Add to Current Problems : NO ProblemS tatus: Resolve Not Available [facility] 2 21:42:02 Sampling of vagina for Papanico laou smear Completed 201810/19/2020 Encounte r for gynecolo gical examinat ion (general ) (routine ) without abnormal findings ; Severity : Moderate Progress : Stable Added By: Adriana Britt Add to Current Problems : NO ProblemS tatus: Resolve Merlene Arnett null, [place] [facility] 3 11:14:22 Hyperlip idemia 86401130 Completed 201910/19/2020 Hyperlip idemia, unspecif ied; Progress : Stable Added By: Emily Lockwood Add to Current Problems : NO ProblemS tatus: Resolve Not Available [facility] 2 21:42:03 Procedur e Completed 202011/19/2021 Encounte r for other preproce dural examinat ion; Severity : Moderate Progress : Stable Added By: Pamela Abdul Add to Current Problems : YES ProblemS tatus: Current Pamela Abdul null[place] [facility] 2 11:44:50 Disorder of pelvic region of trunk Completed 202011/19/2021 Cystocel e, unspecif ied; Severity : Moderate Progress : Stable Added By: Pamela Abdul Add to Current Problems : YES ProblemS tatus: Current Pamela Abdul null[place] [facility] 2 11:44:36 Postoper ative care Completed 202011/19/2021 Encounte r for surgical aftercar e followin g surgery on the genitour inary system; Severity : Moderate Progress : Stable Added By: Pamela Abdul Add to Current Problems : YES ProblemS tatus: Current Pamela Abdul [place] [facility] 11:44:45 Notes:Post-menopausal HRT (V 07.4) ; OnsetDate: 08/15/2018; ResolvedDate: 10/19/2020; Severity: Moderate Progress: Stable Added By: Marii Ma Add to Current Problems: NO ProblemStatus: Resolve Post-menopausal HRT (V07.4) ; OnsetDate: 08/15/2018; ResolvedDate: 10/19/2020; Progress: Stable Added By: Marii Ma Add to Current Problems: NO ProblemStatus: Resolve Problem Notes None recorded. Procedures Surgical History Date Name Laterality Status Provider Name and Address Organization Details Recorded Time 09/03/20 24 Most Recent Bone Density completed Joselin [place] [facility] 01/15/2025 08:57:45 02/07/20 24 Most Recent Mammogram completed [facility] 01/15/2025 08:57:45 11/23/19 22 completed Georgiana Ulloa [facility] 08/23/2022 10:27:10 04/08/20 21 Anterior colporrhaphy completed Chavez Rosa MD [address] [place] [address], [phone], [facility] 11/19/2021 11:57:22 10/08/19 21 Date of Last Colonoscopy completed Merlene [facility] 06/21/2023 11:44:28 08/14/20 17 Date of Last Pap Smear completed [facility] [employer] [employer] 11/18/2021 22:12:15 Vaginal hysterectomy completed Joselin [place] [facility] 01/15/2025 08:58:09 Diagnostic colonoscopy completed [facility] 11/18/2021 22:12:54 total hysterectomy via vaginal approach completed [facility] 11/18/2021 22:14:17 dilation and curettage completed [facility] 11/18/2021 22:14:28 cystoscopy completed Chavez Rosa MD [address] [place] [address], [phone], [facility] 11/19/2021 12:09:11 Imaging Results None recorded. Procedure Notes None recorded. Medical Equipment None Reported. Allergies No known drug allergies Medications Name Sig Start Date Stop Date Status Note LastModified by Organization Details LastModified Time losartan 50 mg tablet TAKE 1 TABLET BY MOUTH DAILY active Not Available Not Available No t Available azithromy kassandra 250 mg tablet 01/15 completed Not Available Not Available Not Available hydrocodo ne 5 mg-acetam inophen 325 mg tablet TAKE 1 TABLET BY MOUTH EVERY 4 HOURS NEEDED FOR PAIN 08/23 completed Not Available Not Available Not Available promethaz ine 6.25 mg/5 mL oral syrup TAKE 5 ML BY MOUTH EVERY 4-6 HOURS NEEDED FOR COUGH 01/15 completed Not Available Not Available Not Available alendrona te 70 mg tablet TAKE 1 TABLET BY MOUTH WEEKLY 01/15 completed Not Available Not Available Not Available benzonata te 100 mg capsule 01/15 completed Not Available Not Available Not Available losartan 25 mg tablet 2 tab daily 10/11 completed losartan 25 mg oral tablet RxNorm: [id number] Allow Substitu tion: True Refill Denied: No Refill DateOccu rred: 01/11/20 18 Edited by: Louise Tanner ) on 10/11/19 21 Stopped by: Louise Tanner ) on 10/11/19 21 Not Available Not Available Not Available docusate sodium 100 mg capsule TAKE 1 CAPSULE BY MOUTH 2 (TWO) TIMES DAILY NEEDED FOR CONSTIPA TION. 08/23 completed Not Available Not Available Not Available Claritin- D 12 Hour 5 mg-120 mg tablet,ex tended release Take 1 tablet(s ) by mouth qd prn 01/15 completed Claritin -D 12 Hour 5-120 mg oral Tablet, Extended Release 12 hr RxNorm: [id number] Allow Substitu tion: True Refill Denied: No Refill DateOccu rred: 01/11/20 18 Edited by: Pamela Brenner) on 11/02/19 21 Stopped by: Pamela Brenner) on Not Available Not Available Not Available metoprolo l succinate ER 25 mg tablet,ex tended release 24 hr TAKE 1 TABLET BY MOUTH EVERY MORNING active Not Available Not Available No t Available estradiol 0.01% (0.1 mg/gram) vaginal cream INSERT 1 GRAM VAGINALL Y 2 TIMES EVERY WEEK active Not Available Not Available No t Available fluticaso ne propionat e 50 mcg/actua tion nasal spray,angeline pension SHAKE LIQUID AND USE 2 SPRAYS IN EACH NOSTRIL DAILY active Not Available Not Available No t Available amoxicill in 875 mg-potass ium clavulana te 125 mg tablet 01/15 completed Not Available Not Available Not Available rosuvasta tin 10 mg tablet TAKE 1 TABLET BY MOUTH DAILY 01/15 completed Not Available Not Available Not Available rosuvasta tin 20 mg tablet active Not Available Not Available Not Available losartan 08/23 completed losartan RxNorm: 494668 Allow Substitu tion: False Refill Denied: No Refill DateOccu rred: 10/11/19 21 Edited by: Pamela Brenner) on 11/02/19 21 Stopped by: Pamela Brenner) on Not Available Not Available Not Available Estrace 1/2 gm per vagina once weekly at bedtime 08/15 completed Estrace 0.1mg/1g m Vaginal Cream RxNorm: 177787 Allow Substitu tion: True Refill Denied: No Not Available Not Available Not Available Ocuvite active Ocuvite RxNorm: 695820 Refill Denied: No Refill DateOccu rred: 07/05/20 21 Edited by: Aurelia Cordero ) on 07/05/20 21 Stopped by: Aurelia Cordero ) on Not Available Not Available Not Available Multivita mins 2017 active Multivit amins Allow Substitu tion: True Refill Denied: No Refill DateOccu rred: 01/11/20 18 Edited by: Louise Tanner ) on 10/11/19 21 Stopped by: [email or web address] e(Bhavik le, Melanesh a ) on Not Available Not Available Not Available Vitamin D2 active Vitamin D2 Allow Substitu tion: False Refill Denied: No Refill DateOccu rred: 07/05/20 21 Edited by: Aurelia Cordero ) on 07/05/20 21 Stopped by: Aurelia Cordero ) on Not Available Not Available Not Available Caltrate with Vitamin D3 600 mg-20 mcg (800 unit) tablet 01/10 completed Caltrate 600 + D Allow Substitu tion: True Refill Denied: No Refill Note: Auto Aged Refill DateOccu rred: 01/11/20 18 Not Available Not Available Not Available Eliquis 5 mg tablet TAKE 1 TABLET BY MOUTH EVERY 12 HOURS active Not Available Not Available No t Available BinaxNOW COVID-19 Ag Self Test kit TEST DIRECTED TODAY 08/23 completed Not Available Not Available Not Available Paxlovid 300 mg (150 mg x 2)-100 mg tablets in a dose pack TK 2 NIRMATRE LVIR TS AND 1 RITONAVI R T TOGETHER PO TWICE DAILY 01/15 completed Not Available Not Available Not Available Vitals Date Recorded Body height Body mass index (BMI) Body weight Body temperature Systolic And Diastolic Provider Name and Address Organization Details Last Updated DateTime 11/14/2022 167.64 cm 24.8 kg/m2 50021.0 7 g 98 [degF] 122/78 mm[Hg] Malena Alas [facility] 3 16:24:25 Date Recorded Body height Body mass index (BMI) Body weight Body temperature Systolic And Diastolic Provider Name and Address Organization Details Last Updated DateTime 11/19/2021 167.64 cm 24.2 kg/m2 14542.8 6 g 98 [degF] 118/78 mm[Hg] Pamela Abdul [facility] 2 11:48:46 Date Recorded Body weight Body mass index (BMI) Body height Systolic And Diastolic Provider Name and Address Organization Details Last Updated DateTime 01/15/2025 23247.96 g 26.1 kg/m2 167.64 cm 142/80 mm[Hg] Joselin Arnett [facility] 01/15/2025 08:57:20 Date Recorded Body height Body mass index (BMI) Body weight Systolic And Diastolic Provider Name and Address Organization Details Last Updated DateTime 06/21/2023 167.64 cm 25.1 kg/m2 05083.25 g 130/76 mm[Hg] Merlene Arnett [place] [employer] [facility] 06/21/2023 11:43:38 Date Recorded Body height Body mass index (BMI) Body weight Systolic And Diastolic Provider Name and Address Organization Details Last Updated DateTime 08/23/2022 167.64 cm 24.7 kg/m2 30220.63 g 126/82 mm[Hg] Georgiana Ulloa [facility] 08/23/2022 10:21:51 Social History Question Answer Notes LastModified by [facility] ion Details LastModified Time Tobacco Smoking Status Never Smoker Georgiana Ulloa [place], [place] [facility] 08/23/2022 10:18:46 Are You Blind Or Do You Have Difficulty Seeing? No Information not available 11/14/2022 Are You Deaf Or Do You Have Serious Difficulty Hearing? No Information not available 11/14/2022 What Type Of Diet Are You Following? REGULAR Information not available 11/14/2022 What Is The Highest Grade Or Level Of School You Have Completed Or The Highest Degree You Have Received? [id number] Information not available 01/15/2025 How Many Children Do You Have? 2 Information not available 08/23/2022 What Is Your Relationship Status? Information not available 11/18/2021 Are You Sexually Active? Yes Information not available 11/18/2021 Sex: Unknown Functional Status Question Answer Note LastModified by Organizat ion Details LastModified Time Do you use any illicit or recreational drugs? No Information not available 11/14/2022 Do you or have you ever used any other forms of tobacco or nicotine? No Information not available 11/14/2022 What is your level of alcohol consumption? None Information not available 08/23/2022 Are you currently employed? No [email or web address] Information not available 06/21/2023 Do you or have you ever used e-cigarettes or vape? Never used electronic cigarettes Information not available 08/23/2022 What is your exercise level? Moderate Information not available 08/23/2022 Mental Status None recorded. Family History Relationship Description Onset Age of this Age Resolved Age Notes LastModified by Organization Details LastModified Time Father Hypertensive disorder [email or web address] Not available 11/08 22:14:01 Medical History Condition Response Other Cancer N High Blood Pressure Y Colon Cancer N Cytomegalovirus N Hyperthyroidism N MRSA N Blood Transfusion N Herpes (HSV) N Breast Cancer N Lung Cancer N Depression N Hypothyroidism N Incontinence N Panic Attacks N Neurological Disorder N Deep Vein Thrombosis N Anxiety Disorder N Autoimmune disease N Arthritis N Shingles N Tuberculosis/Positive PPD N Infertility N Polycystic Ovarian Syndrome N Cervical Cancer N Hematuria N Chlamydia N Varicosities N Stroke N Seasonal allergies N Crohn's Disease N Alzheimer's/Dementia N COPD/Emphysema N Endometriosis N HPV/Genital Warts N IBS (Irritable Bowel Syndrome) N History of Abnormal Pap N High Cholesterol N Liver Disease N Fibromyalgia N Kidney Infection N Ulcer N Kidney Disease N HIV N Gallbladder disease N Sickle Cell Disease/Trait N Von Willebrand disease N ADD/ADHD N Eating Disorder N Anemia N Diabetes Mellitus (non-insulin dependent ) N Ovarian Problems N Multiple Sclerosis N Gonorrhea N Frequent Urinary Tract infections N Osteopenia N Headaches/migraines N GERD (reflux) N Ovarian Cancer N Diabetes (insulin dependent) N Seizures/Epilepsy N Breast Problems N Fibroids N Heart Attack N Asthma N Lupus N Endometrial Cancer N Rubella N Blood Clotting Disorder N Bipolar Disorder N Diabetes Mellitus (during ) N Ulcerative Colitis N Hepatitis N Heart Disease N Pulmonary Embolism N RPR N Chicken Pox N Osteoporosis N Gynecological History Statement/Question Response If Post Menopausal, Age at Menopause 45 Date of Last Colonoscopy 10/08/2020 Most Recent Bone Density 09/03/2024 Date of Last Pap Smear 08/14/2017 Most Recent Mammogram 02/07/2024 Current Control Method Hysterectom y Age at Menarche 12 11/23/2021 Obstetrics History GPAL:G 2 P 2 0 0 2 Type Value Full Term 2 Living 2 Total 2 Past Encounters Encounter ID Performer Location Encounter Start Date Encounter Closed Date Diagnosis/Indication Diagnosis SNOMED-CT Code Diagnosis ICD10 Code Diagnosis IMO Codes Diagnosis Note [id number] Chavez Rosa MD [facility] [address] [facility] [address] 11/19/2021 10:43:07 11/23/2021 12:07:04 Prolapse of vaginal vault after hysterectomy 47179681 N99.3 great support Menopause 347751284 N95. 1 discussed any form of transderma l estrogen and possiblyy prometrium 100mg daily o as well as possibly osphena and vagifem... .can do any combinatio n and will call [facility] for any hormone regimen if desires to medicine shoppe in [facility] for estrogen cream vaginally or E,P,and or Testostero ne cream combinatio n and we would use estriol only as a form of estrogen for least amt of stimulatio n to the breast if desiresFOL LOW-UP: Schedule follow-up appointmen ts on a p.r.n. basis. . Right side sciatica 3202 897014 86036 M54.31 wrote order [id number] GURDEEP SMITH MD [facility] [address] [place] [address] 08/23/2022 10:08:22 10/19/2022 14:21:42 Gynecologic examination 96199756 Z01.419 Midline cystocele 514152 003 N81.11 [id number] GURDEEP SMITH MD [facility] [address] [place] [address] 11/14/2022 15:54:32 11/28/2022 15:21:10 Postmenopausal osteopenia 720889319 M85.80 [id number] Minnie Norman MD [facility] [address] [place] [address] 06/21/2023 10:49:57 06/21/2023 17:46:51 Gynecologic examination 37750288 Z01.419 Stop Fosamax (Osteopeni a, non treatable FRAX). Repeat DXA 08/2024 Screening for malignant neoplasm of breast 921222193 Z12.31 after 09/02/2023 Depression screening 171 484553 Z13.31 [id number] Minnie Norman MD [facility] [address] [place] [address] 01/15/2025 08:47:45 01/15/2025 09:42:54 Menopause 130833944 N95.1 -Continue with estradiol cream twice a week-Will schedule WWE. The patient was initially evaluated by DIMITRY Beck, who completed the history examinatio n, and preliminar y assessment . I, Minnie Norman MD, entered the room to review and discuss the care plan with the patient. After reviewing the specific findings and documentat ion provided by Patricia, I confirmed the diagnosis and care plan, addressing any additional concerns or questions raised by the patient. The final plan of care was developed collabormargaret [place] and has been documented accordingl y. Health Concerns Section Related Observation LastModified by Organization Detai ls LastModified Time None Recorded Concern Status LastModified by Organization Details LastModified Time None Recorded Advance Directives Directive None Recorded Payers Insurance Date Sequence Insurance Name Policy Number Policy Hansno Covered Member ID Hanson Member ID Guarantor Name 01/20/2025 1 [place] Liyah Shah [id number] Liyah Shah 01/20/2025 3 AARP (MEDICARE SUPPLEMENT) Liyah Shah [id number] Liyah Shah 01/20/2025 2 [employer] (MEDICARE SUPPLEMENT) Liyah Shah [id number] Liyah Shah Notes Date Note Type Note Provider Name and Address Organization Details Recorded Time 2 text/html Pelvic ProlapseReported by Patientno incontinince and no problems with bowel movements and using the cream biweekly and no prolapse and right leg and buttock to the knee and worse with exercise Chavez Rosa MD [address] [place], [address], [facility] 12/21/2021 06:46:02 2 text/html Annual GYNReported by PatientGenitourinary symptomsFor menstrual cycle, patient reportsnormal menses. For urinary symptoms, patient reportsno hematuriaandno incontinence. For vulva, patient reportsno genital lesion. For vagina, patient reportsnormal vaginal discharge.Breast symptomsFor breast, patient reportsno breast pain,no breast lump, andno nipple discharge.Endocrine symptomsFor sexual complaints, patient reportsno sexual complaints,no pain during intercourse, andnormal libido. For menopausal symptoms, patient reportsno menopausal symptomsandnormal vaginal lubrication.Psychological symptomsFor psychological symptoms, patient reportsno depression,no anxiety, andno pmdd. Patient is being seen today for an annual well woman66 year old P2L2 here for annual clinical product specialist Piano Accompanist concerns: noneMenopause:HRT:on E2 vaginal creamSexually active Last Mammo olonoscopy MD scheduled for 09/02 @ [place]/ [facility]maroPCP: Dr. Llanos, James @ [place] GURDEEP JUDD MD [address] [place] [address], [phone], [facility] [employer] IV 10/17/2022 19:00:35 3 text/html Patient is here to discuss bone density test with providerKnown Hx of Osteopenia, started on some meds by PCP- unsureTakes vitamin and Ca GURDEEP JUDD MD [address] [place] [address], [phone], [facility] [employer] [facility] 01/13/2023 23:00:59 3 text/html Annual Piano Accompanist Post-MenopausalReported by PatientGenitourinary symptomsFor menopausal symptoms, patient reportsno menopausal symptoms. For vaginal bleeding, patient reportshistory of menopause having occurredandno history of post menopausal bleeding. For urinary symptoms, patient reportsno hematuria,no incontinence,no nocturia, andno urinary frequency. For vulva, patient reportsno genital lesionandno vulvar atrophy. For vagina, patient reportsnormal vaginal dischargeandno vaginal atrophy.Breast symptomsFor breast, patient reportsno breast lump,no nipple discharge, andno breast pain.Psychological symptomsFor sexual complaints, patient reportsno sexual complaintsandno pain during intercourse. For psychological symptoms, patient reportsno depressionandno anxiety.Preventative measuresFor preventive measures, patient reportsencourage self breast examination,encourage regular exercise,needs to schedule mammogram, andhistory of recent colonoscopy. Liyah 67 y/o here for annual well women visit, she is post hysterectomy, Last mammogram 09/02/2022. Last dexa scan08/2022, last colonoscopy 2020 Minnie Norman MD [address] [place] [address], [place], [address], [facility] [employer] IV 06/21/2023 12:20:46 5 text/html ROS as noted in the HPI Liyah is here today because she needs a refill on her medication. Refill on her estradiol cream. She had a hysterectomy, doesn't have periods anymore. Patient is doing well with estrogen cream and has questions about her WWE. Minnie Norman MD [facility] [place], [address], [facility] [employer] IV 01/15/2025 09:31:53 OBGyn Episode No OBEpisode recorded.
--- OUTSIDE RECORDS SUMMARY | 2025-07-23 10:11 | XMS_ITS | Clinical Summary ---
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 Gender Identity Not on file Sexual Orientation Not on file Obstetrics History Last Filed Vital Signs Vital Sign Reading Time Taken Comments Blood Pressure 130/66 12/08/2024 10:46 AM IDEA WORKER Pulse 77 12/08/2024 10:46 AM IDEA WORKER Temperature - - Respiratory Rate - - Oxygen Saturation 96% 12/08/2024 10: 46 AM IDEA WORKER Inhaled Oxygen Concentration - - Weight 72.9 kg (160 lb 12.8 oz) 025 10:46 AM IDEA WORKER Height 163.8 cm (5' 4.49) 12/08/2024 1 0:46 AM IDEA WORKER Body Mass Index 27.19 12/08/2024 10:46 AM IDEA WORKER Plan of Treatment Health Maintenance Due Date [...] exists Zoster Vaccine Completed 10/27/2020, 07/13/2020 Insurance [facility] MEDICARE [facility] MEDICARE [facility] Care Teams Business And Marketing Teacher Relationship Specialty Start Date End Date Beatrice Bowman NP [address] [place] [address] PCP - General Nurse Practitioner 01/25/24 Tal Cash MD [address] [place] [address] Consulting Physician Rheumatology 02/26/19
--- OUTSIDE RECORDS SUMMARY | 2025-07-23 10:12 | XMS_ITS | Data Portability ---
Author Organization [place] - [facility] OFFICE Address [address] [place] [address] Care Team Providers Care Wrapping Clerk Name Role Phone SHEN PLAZA Primary Care Provider [phone] Assessment No assessment recorded. Plan of Treatment Reminders Order Date Submit Date Provider Last Modified By Organization Details Last Modified Time Details Appointments None recorded. Lab None recorded. Referral None recorded. Procedures None recorded. Surgeries None recorded. Imaging electrocard iogram 2018 019 CYDNEY Not available 9 18:14:37 Medication Orders None recorded. Patient TargetsNo targets recorded. Patient Instructions Encounter Date Encounter Id Patient Instructions Last Modified By Organization Details Last Modified Time 09/24/2018 [id number] Exercise advised Low cholesterol diet advised Low sodium diet advised. This document was scribed by Savana Novoa PA-C. [email or web address] Not available 09/24/2018 16:58:45 10/20/2019 [id number] low cholesterol diet [email or web address] Not available 10/20/2019 11:16:06 Exercise advised Low cholesterol diet advised Low sodium diet advised Not available 10/20/2019 11:00:13 Scribed by Beth Perez PA-C Not available 10/20/2019 11:00:28 Reason for Referral None Reported. Results Created Date Observation Date Name Description Value Unit Range Abnormal Flag Note LastModifiedBy Organization Detail LastModifiedTime 09/25/20 18 09/24/2018 maddy zelayagr am No observ ation record ed. [email or web address] Not Available 2017 11:11:58 10/07/20 18 09/10/2018 XR, chest No observ ation record ed. [email or web address] Not Available 2018 03:58:08 10/07/20 18 09/10/2018 maddy zelayagr am No observ ation record ed. [email or web address] Not Available 2018 04:02:56 10/15/19 19 stres s echoc ardio gram No observ ation record ed. [email or web address] Not Available 2018 15:40:11 10/23/19 19 10/02/2018 stres s echoc ardio gram No observ ation record ed. [email or web address] Not Available 2018 15:38:28 Result Notes None recorded. Problems Name Problem SNOMED Code Status Onset Date Resolution Date Notes Provider Name and Address Organization Details Recorded Time Essential hypertension 71568631 Active 2017 Savana Peludat [facility], [place] - [facility] 8 16:58:01 Mitral valve prolapse 885495618 Active 2017 Savana Peludat [place], [place] [facility] 8 16:58:12 Edema of lower extremity 623179427 Active 2017 Savana Peludat [place] [facility] 8 16:58:17 Electrocardiog omar abnormal 560573609 Active 2017 Savana Peludat [place] [facility] 8 16:58:28 Palpitations 36195571 Active 2017 Diego Mojica i, MD [address] [place], [address] [place] [address] - [facility] 8 17:10:21 Dyslipidemia 003775629 Active 2019 Husam Cotter [facility], [place] - [facility] 0 10:07:03 Problem Notes None recorded. Procedures Surgical History Date Name Laterality Status Provider Name and Address Organization Details Recorded Time Vaginal hysterectomy completed Emely Armijo [place] - [facility] 09/24/2018 16:42:20 Imaging Results None recorded. Procedure Notes None recorded. Medical Equipment None Reported. Allergies No known drug allergies Medications Name Sig Start Date Stop Date Status Note LastModified by Organization Details LastModified Time alendronate 70 mg tablet 09/24 completed NO LONGER TAKING; AL 8 Not Available Not Available Not Available losartan 25 mg tablet Take 1 tablet every day by oral route as directe d. active Not Available Not Available No t Available Vitamin D3 1qd active Not Available Not Av ailable Not Available multivitami n 1qd active Not Available Not Available Not Available vit D3-folic acid-B2-B6- B12 1qd 10/20 completed Not Available Not Available Not Available Caltrate 1qd active Not Available Not Avai lable Not Available Flucelvax Quad (PF) 60 mcg (15 mcg x 4)/0.5 mL IM syringe active Not Available Not Available N ot Available Vitals Date Recorded Body height Body mass index (BMI) Body weight Heart rate Oxygen saturation Oxygen saturation in Arterial blood by Pulse oximetry Systolic And Diastolic Provider Name and Address Organization Details Last Updated DateTime 9 167.64 cm 24.5 kg/m2 68829.0 4 g 43 /min 98 % 98 % 158/88 mm[Hg] LINSEY Quesada [facility] 9 18:13:35 Date Recorded Body height Body mass index (BMI) Body weight Heart rate Respiratory rate Oxygen saturation Oxygen saturation in Arterial blood by Pulse oximetry Systolic And Diastolic Provider Name and Address Organization Details Last Updated DateTime 0 167.64 cm 25.7 kg/m2 25405.1 9 g 86 /min 18 /min 98 % 98 % 148/82 mm[Hg] Mary Daniel [facility] 0 10:28:28 Date Recorded Body height Body mass index (BMI) Body weight Oxygen saturation Oxygen saturation in Arterial blood by Pulse oximetry Heart rate Systolic And Diastolic Provider Name and Address Organization Details Last Updated DateTime 9 167.64 cm 24.5 kg/m2 08948.0 4 g 96 % 96 % 94 /min 118/66 mm[Hg] PAO DURANT [facility] 9 17:52:00 Date Recorded Body weight Body mass index (BMI) Body height Heart rate Oxygen saturation Oxygen saturation in Arterial blood by Pulse oximetry Systolic And Diastolic Provider Name and Address Organization Details Last Updated DateTime 8 40136.3 g 27.6 kg/m2 167.64 cm 77 /min 98 % 98 % 128/80 mm[Hg] Emely Armijo [facility] 8 16:46:41 Social History Question Answer Notes LastModified by Organizat ion Details LastModified Time Tobacco Smoking Status Never Smoker Not Available [employer] 08/10/2020 03:30:41 What Is Your Level Of Caffeine Consumption? Moderate [id number] Information not available 08/10/2020 How Much Tobacco Do You Chew? None [id number] Information not available 08/10/2020 What Type Of Diet Are You Following? REGULAR [id number] Information not available 08/10/2020 Which Illicit Or Recreational Drugs Have You Used? No [id number] Information not available 08/10/2020 Marital Status Informatio n not available 09/24/2018 What Was The Date Of Your Most Recent Tobacco Screening? 09/24/2018 [id number] Information not available 08/10/2020 How Many Children Do You Have? 2 [id number] Information not available 08/10/2020 How Much Tobacco Do You Smoke? No [id number] Information not available 08/10/2020 How Many Years Have You Smoked Tobacco? 0 [id number] Information not available 08/10/2020 Sex: Unknown Functional Status Question Answer Note LastModified by Organizat ion Details LastModified Time What is your level of alcohol consumption? 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 Information not available 09/24/2018 What is your exercise level? Occasional [id number] Information not available 08/10/2020 Mental Status None recorded. Family History Relationship Description Onset Age of this Age Resolved Age Notes LastModified by Organization Details LastModified Time Father Myocardial infarction [email or web address] Not available 09/24 16:40:20 Father Hypertensive disorder [email or web address] Not available 2017 16:40:31 Mother Hypertensive disorder [email or web address] Not available 2017 16:40:31 Medical History Condition Response Valvular Heart Disease Y Hypertension Y Gynecological HistoryNo gynecological history recorded. Obstetrics History GPAL:G 0 P 0 0 0 0 Past Encounters Encounter ID Performer Location Encounter Start Date Encounter Closed Date Diagnosis/Indication Diagnosis SNOMED-CT Code Diagnosis ICD10 Code Diagnosis IMO Codes Diagnosis Note [id number] Diego Goldberg MD [place] OFF[facility] [place] [address] 09/24/2018 16:25:16 10/04/2018 10:25:43 Edema of lower extremity 814036618 R60.0 Wears compressio n stockings. Mitral valve prolapse 40 8562743 I34.1 Essential hypertension 93031404 I10 Well controlled today. Electrocar diogram abnormal 710902374 R94.31 Will get exercise stress echo, to look for any new ischemia. Educated to cut down on Caffeine. Palpitations 75708939 R0 0.2 Will order 24 Hour Holter Monitor to evaluate for arrhythmia . [id number] Diego Goldberg MD [place] OFFICE [address] [place] [address] 10/15/2018 17:30:01 10/15/2018 18:39:34 Electrocardiogram abnormal 992626942 R94.31 Will get exercise stress echo, to look for any new ischemia. Educated to cut down on Caffeine. Palpitations 88295525 R0 0.2 Will order 24 Hour Holter Monitor to evaluate for arrhythmia . Edema of l ower extremity 537209663 R60.0 Wears compressio n stockings. Mitral valve prolapse 40 6747134 I34.1 Essential hypertension 26487920 I10 Blood pressure is elevated today, but this is only one reading, will keep close follow up, and consider medication change if blood pressure is still elevated next visit. Atypical chest pain 1025 70498 R07.89 Will get exercise stress echo, to look for any structural heart disease, and to look for any ischemia [id number] MD [facility] Office [address] [place] [address] 05/07/2019 17:31:17 05/07/2019 18:13:28 Electrocardiogram abnormal 335099566 R94.31 Will get exercise stress echo, to look for any new ischemia. Educated to cut down on Caffeine. Palpitations 90768631 R0 0.2 Will order 24 Hour Holter Monitor to evaluate for arrhythmia . Edema of l ower extremity 914228656 R60.0 Wears compressio n stockings. Mitral valve prolapse 40 5462596 I34.1 Essential hypertension 96296439 I10 Now well controlled Atypical chest pain 1025 48182 R07.89 stable now Dyslipidemia 023322529 E 78.5 Needs to keep LDL less than 70, and HDL more than 40 Will get lipid profile results from PCP [id number] MD Hayley [facility] Office [address] [place] [address] 10/20/2019 10:12:53 10/20/2019 11:17:06 Electrocardiogram abnormal 211505532 R94.31 Stress echo normal Palpitations 87916088 R0 0.2 Occasional . Mitral valve prolapse 40 8279999 I34.1 10/02/18-S TRESS ECHO-Negat malachi stress echo for ischemia. MVP noted on baseline images. Essential hypertension 57107590 I10 Blood pressure is elevated today, but this is only one reading, will keep close follow up, and consider medication change if blood pressure is still elevated next visit. Dyslipidemia 417118376 E 78.5 Needs to keep LDL less than 100, and HDL more than 40 09/29/19 FLP: TC 199, TR 73, HDL 69, LDL 115 She prefers diet changes for management at this time. Health Concerns Section Related Observation LastModified by Organization Detai ls LastModified Time None Recorded Concern Status LastModified by Organization Details LastModified Time None Recorded Advance Directives Directive None Recorded Payers Insurance Date Sequence Insurance Name Policy Number Policy Hanson Covered Member ID Hanson Member ID Guarantor Name 10/20/2019 1 [place] [id number] L Jeremy Shah [id number] Liyah Shah 10/15/2018 1 [facility] Jeremy Shah [id number] Liyah Shah 10/20/2019 1 [place] [id number] C Liyah Shah [id number] Liyah Shah Notes Date Note Type Note Provider Name and Address Organization Details Recorded Time 09/24/2018 text/html 09/24/18 CC: Abnormal EKG 62 year-old woman with history of MVP, HTN, presents for cardiac consultation with a chief complaint of abnormal EKG. Patient stated having EKG done at [facility]. Will obtain copy. She was at her OB on 08/11/18 and was told she had an extra heart beat, which is new. She went to [facility] as an Outpatient and had an EKG, blood work and CXR which were negative except for EKG showing PVC. She has a family history of father who at 43 from an [place]. No known history of coronary artery disease. No history of previous myocardial infarction. No history of heart failure. History of valvular heart disease, MVP. No known arrhythmia. Reports history of echo years ago at [facility]. No prior stress test, or left heart catheterization per patient. She is active, 2-3 times per week with [employer], walking treadmill 1-2 miles and weights. No chest pain. No shortness of breath at rest. No dyspnea on exertion. No palpitations. No orthopnea. No PND's. No lightheadedness or dizziness. No syncope or near syncope. Slight leg swelling, wears compression stockings. No nausea and vomiting. No major bleeding events. No side effects from medications. Results from this visit, or from the past: Diego Goldberg MD [address] [place], [address], [facility] 09/24/2018 22:40:27 10/15/2018 text/html 10/15/18 CC: Abnormal EKG 62 year-old woman with history of MVP, HTN, presents for cardiac consultation with a chief complaint of dyspnea on exertion, and has abnormal EKG. Patient stated having EKG done at [facility]. She was at her OB on 08/11/18 and was told she had an extra heart beat, which is new. She went to [facility] as an Outpatient and had an EKG, blood work and CXR which were negative except for EKG showing PVC. She has a family history of father who at 43 from an [place]. No known history of coronary artery disease. No history of previous myocardial infarction. No history of heart failure. History of valvular heart disease, MVP. No known arrhythmia. Reports history of echo years ago at [facility]. No prior stress test, or left heart catheterization per patient. She is active, 2-3 times per week with [employer]zi, walking treadmill 1-2 miles and weights. No chest pain. No shortness of breath at rest. No dyspnea on exertion. No palpitations. No orthopnea. No PND's. No lightheadedness or dizziness. No syncope or near syncope. Slight leg swelling, wears compression stockings. No nausea and vomiting. No major bleeding events. No side effects from medications. Results from this visit, or from the past: 09/28/18: Na 142 ,K 4.1 ,CL 105 ,CO2 23, GLU 83, BUN 17, CR 0.75, TC ,202 TG 86 ,HDL 69 ,LDL 116 ,AST 16 ALT 20, 09/10/18: HB 14.5, HT 41.5 09/10/18: Na 138 ,K 4.3 , CL 105 ,CO2 24 ,GLU 97,BUN 18, CR 0.6, EKG 09-24-2018 Anteroseptal myocardial infarction, age undetermined. EK09/10/18 Sinus rhythm. Ventricular couplet and ventricular bigeminy. Possible left atrial enlargement. Cannot rule out septal infarct, age indeterminate. Abnormal ECG. 10/15/18-STRESS ECHO-Negative stress echo for ischemia. MVP noted on baseline images. 09/10/18 CHEST 2 VIEW: No acute cardiomegaly findings. Hyperinflation. Diego Goldberg MD [facility] [place], [address], [facility] 10/21/2018 01:21:30 05/07/2019 text/html 05/07/19 CC: Abnormal EKG 62 year-old woman with history of MVP, HTN, presents for cardiac consultation with a chief complaint of dyspnea on exertion, and has abnormal EKG. Patient stated having EKG done at [facility]. She was at her OB on 08/11/18 and was told she had an extra heart beat, which is new. She went to [facility] as an Outpatient and had an EKG, blood work and CXR which were negative except for EKG showing PVC. She has a family history of father who at 43 from an [place]. No known history of coronary artery disease. No history of previous myocardial infarction. No history of heart failure. History of valvular heart disease, MVP. No known arrhythmia. Reports history of echo years ago at [facility]. No prior stress test, or left heart catheterization per patient. She is active, 2-3 times per week with [employer]zi, walking treadmill 1-2 miles and weights. No chest pain. No shortness of breath at rest. No dyspnea on exertion. No palpitations. No orthopnea. No PND's. No lightheadedness or dizziness. No syncope or near syncope. Slight leg swelling, wears compression stockings. No nausea and vomiting. No major bleeding events. No side effects from medications. Results from this visit, or from the past: 09/28/18: Na 142 ,K 4.1 ,CL 105 ,CO2 23, GLU 83, BUN 17, CR 0.75, TC ,202 TG 86 ,HDL 69 ,LDL 116 ,AST 16 ALT 20, 09/10/18: HB 14.5, HT 41.5 09/10/18: Na 138 ,K 4.3 , CL 105 ,CO2 24 ,GLU 97,BUN 18, CR 0.6, EKG, 05/07/19: Anteroseptal AK, age, undetermined. Poor R progrssion in chest leads. mu stress echocardiogram 10-15-2018 10/02/18-STRESS ECHO-Negative stress echo for ischemia. MVP noted on baseline images. EKG 09-24-2018 Anteroseptal myocardial infarction, age undetermined. EK09/10/18 Sinus rhythm. Ventricular couplet and ventricular bigeminy. Possible left atrial enlargement. Cannot rule out septal infarct, age indeterminate. Abnormal ECG. 10/15/18-STRESS ECHO-Negative stress echo for ischemia. MVP noted on baseline images. 09/10/18 CHEST 2 VIEW: No acute cardiomegaly findings. Hyperinflation. ` Diego Goldberg MD [address] [place], [address], [facility] 05/07/2019 18:13:26 10/20/2019 text/html 10/20/2019 CC: palpitations 63 year-old woman with history of MVP, HTN, presents for follow up. She was last seen 6 months ago. Up 7 lbs. She reports feeling well. She is active, 2-3 times per week with [employer], walking treadmill 1-2 miles and weights. Occasional palpiations at night and with exercise. She has a family history of father who at 43 from an [place]. She was initially referred for abnormal EKG. Reports having EKG done at [facility]. She was at her OB on 08/11/18 and was told she had an extra heart beat, which is new. She went to [facility] as an Outpatient and had an EKG, blood work and CXR which were negative except for EKG showing PVC. Reports history of echo years ago at [facility]. No prior stress test, or left heart catheterization per patient. No chest pain. No shortness of breath at rest. No dyspnea on exertion. No orthopnea. No PND's. No lightheadedness or dizziness. No syncope or near syncope. Slight leg swelling, wears compression stockings. No nausea and vomiting. No major bleeding events. No side effects from medications. Results from this visit, or from the past:09/29/19 CMP: GL 91, B 20, CR 0.75, NA 142, K 4.3, CH 104, CO2 22, CA 9.3, AST 20, ALT FLP: TC 199, TR 73, HDL 69, LDL 115 09/28/18: Na 142 ,K 4.1 ,CL 105 ,CO2 23, GLU 83, BUN 17, CR 0.75, TC ,202 TG 86 ,HDL 69 ,LDL 116 ,AST 16 ALT 20, 09/10/18: HB 14.5, HT 41.5 09/10/18: Na 138 ,K 4.3 , CL 105 ,CO2 24 ,GLU 97,BUN 18, CR 0.6, EKG, 05/07/19: Anteroseptal AK, age, undetermined. Poor R progrssion in chest leads. mu stress echocardiogram 10-15-2018 10/02/18-STRESS ECHO-Negative stress echo for ischemia. MVP noted on baseline images. EKG 09-24-2018 Anteroseptal myocardial infarction, age undetermined. EK09/10/18 Sinus rhythm. Ventricular couplet and ventricular bigeminy. Possible left atrial enlargement. Cannot rule out septal infarct, age indeterminate. Abnormal ECG. 10/15/18-STRESS ECHO-Negative stress echo for ischemia. MVP noted on baseline images. 09/10/18 CHEST 2 VIEW: No acute cardiomegaly findings. Hyperinflation. ` Diego Goldberg MD [address] [facility] [address], [place], [address], [facility] 10/20/2019 11:16:43 OBGyn Episode No OBEpisode recorded.
[2025-07-23] MEDS: TETANUS,DIPHTHERIA,AC PERTUSSIS ADULT (0.5 ML) BOOSTRIX IM (10:23)
[2025-07-23 10:27] VITALS: BP 147/66; PULSE 62; RESP 16; TEMP 36.4; O2SAT 99
== END 2025-07-23 10:27 | disposition home or self-care (01) ==
PROVIDERS: Emergency Provider Physician Assistant; PCP Nurse Practitioner Family
DX: S60.221A Contusion of right hand, initial encounter (principal); S60.511A Abrasion of right hand, initial encounter; Z23 Encounter for immunization; I48.91 Unspecified atrial fibrillation; I10 Essential (primary) hypertension; E78.5 Hyperlipidemia, unspecified; E55.9 Vitamin D deficiency, unspecified; M85.80 Other specified disorders of bone density and structure, unspecified site; Z79.82 Long term (current) use of aspirin; Z79.899 Other long term (current) drug therapy; W23.0XXA Caught, crushed, jammed, or pinched between moving objects, initial encounter
CPT/HCPCS: 73130; 90471; 90715; 99283

== ENCOUNTER 2025-09-24 15:27 | Emergency (ER) | payer MEDICARE, OTHER, SELFPAY ==
--- NOTE | ~2025-09-24 | CT_ITS ---
EXAMINATION: CT brain wo con DATE: 09/24/2025 16:36 INDICATION: Head injury TECHNIQUE: Computed tomography (CT) of the head was performed without intravenous contrast. The dose-length product was 605.33 mGy-cm. COMPARISON: None FINDINGS: No gross acute intracranial mass effect or hemorrhage. Morales-white attenuation pattern is intact. No large acute ischemic event. Mild chronic microvascular ischemic appearing white matter changes. Mild edematous changes may be present in the lower left frontal scalp region. No large hematoma. Periorbital paranasal calvarial structures appear within normal limits. IMPRESSION: 1. No gross intracranial mass effect or hemorrhage. Reviewed, dictated and finalized at location A. SUPPORT AND TEST ENGINEERS
[2025-09-24 15:32] VITALS: BP 183/97; PULSE 80; RESP 16; TEMP 37.1; O2SAT 98
--- OUTSIDE RECORDS SUMMARY | 2025-09-24 16:04 | XMS_ITS | Continuity of Care Document ---
Author Organization [facility] [employer] , [facility] Address [address] [place] [address] Assessment No assessment recorded. Plan of Treatment Reminders Order Date Submit Date Provider Last Modified By Organization Details Last Modified Time Details Appointments None recorded. Lab None recorded. Referral None recorded. Procedures None recorded. Surgeries None recorded. Imaging None recorded. Medication Orders estradiol 0.01% (0.1 mg/gram) vaginal cream 2024 025 [id number], [address], [place], [id number], 14:26:23 Patient TargetsNo targets recorded. Patient Instructions Encounter Date Encounter Id Patient Instructions Last Modified By Organization Details Last Modified Time 09/01/2025 [id number] A healthy lifestyle: care instructions Not available 09/01/2025 14:26:01 substance use disorder: care instructions Not available 09/01/2025 14:26:01 calcium and vitamin D combination Not available 09/01/2025 14:26:01 depression (wome n only) Not available 09/01/2025 14:26:01 eating healthy foods: care instructions Not available 09/01/2025 14:26:01 exercise program : getting started Not available 09/01/2025 14:26:01 protect bone wit h calcium and vitamin D Not available 09/01/2025 14:26:01 osteoporosis education Not available 09/01/2025 14:26:01 Reason for Referral None Reported. Problems Name Problem SNOMED Code Status Onset Date Resolution Date Notes Provider Name and Address Organization Details Recorded Time Bone density finding 278957595 Completed 201710/19/2020 Other specifie d disorder s of bone density and structur e, unspecif ied site; Progress : Stable Added By: Emily Lockwood Add to Current Problems : NO ProblemS tatus: Resolve Not Available [facility] 2 21:42:02 Disorder of bone and articula r cartilag e [id number] Completed 201710/19/2020 Osteopen ia; Location : None Progress : Stable Added By: Emily Lockwood Add to Current Problems : YES ProblemS tatus: Current Osteopen ia; Progress : Stable Added By: Emily Lockwood Add to Current Problems : NO ProblemS tatus: Resolve Not Available [facility] 2 21:42:03 Hormone replacem ent therapy Completed 201710/19/2020 Hormone replacem ent therapy; Progress : Stable Added By: Marii Victoria Add to Current Problems : NO ProblemS tatus: Resolve Post-men opausal HRT; Location : None Progress : Stable Added By: Marii Victoria Add to Current Problems : YES ProblemS tatus: Current Not Available [facility] 2 21:42:02 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 18738362 Completed 201710/19/2020 Arrhythm ia, unspecif ied; Progress : Stable Added By: Nima Bahena Add to Current Problems : NO ProblemS tatus: Resolve Not Available [facility] 2 21:42:02 Ectopic rhythm 65510293 Completed 201710/19/2020 Arrhythm ia, unspecif ied; Location : None Progress : Stable Added By: Nima Bahena Add to Current Problems : YES ProblemS tatus: Current Other specifie d cardiac arrhythm ias; Progress : Stable Added By: Nima Bahena Add to Current Problems : NO ProblemS tatus: Resolve Not Available [facility] 2 21:42:02 Sampling of vagina for Papanico laou smear Completed 201810/19/2020 Encounte r for gynecolo gical examinat ion (general ) (routine ) without abnormal findings ; Severity : Moderate Progress : Stable Added By: Adriana Britt Add to Current Problems : NO ProblemS tatus: Resolve Merlene Arnett null, [facility] 3 11:14:22 Hyperlip idemia 53625694 Completed 201910/19/2020 Hyperlip idemia, unspecif ied; Progress : Stable Added By: Emily Lockwood Add to Current Problems : NO ProblemS tatus: Resolve Not Available [facility] 2 21:42:03 Procedur e Completed 202011/19/2021 Encounte r for other preproce dural examinat ion; Severity : Moderate Progress : Stable Added By: Pamela Abdul Add to Current Problems : YES ProblemS tatus: Current Pamela linares, [facility] 2 11:44:50 Disorder of pelvic region of trunk Completed 202011/19/2021 Cystocel e, unspecif ied; Severity : Moderate Progress : Stable Added By: Pamela Abdul Add to Current Problems : YES ProblemS tatus: Current Pamela linares, [facility] 2 11:44:36 Postoper ative care Completed 202011/19/2021 Encounte r for surgical aftercar e followin g surgery on the genitour inary system; Severity : Moderate Progress : Stable Added By: Pamela Abdul Add to Current Problems : YES ProblemS tatus: Current Pamela Abdul null, [facility] 2 11:44:45 Problem Notes None recorded. Procedures Surgical History Date Name Laterality Status Provider Name and Address Organization Details Recorded Time 03/27/20 25 Most Recent Mammogram completed Gris Daniel [facility] 09/01/2025 13:59:16 09/03/20 24 Most Recent Bone Density completed Joselin Arnett [facility] 01/15/2025 08:57:45 11/23/19 22 completed Georgiana Ulloa [facility] 08/23/2022 10:27:10 04/08/20 21 Anterior colporrhaphy completed Chavez Rosa MD [address] [place], [address], [facility] 11/19/2021 11:57:22 10/08/19 21 Date of Last Colonoscopy completed Merlene Arnett [facility] 06/21/2023 11:44:28 08/14/20 17 Date of Last Pap Smear completed [facility] 11/18/2021 22:12:15 Vaginal hysterectomy completed Joselin [facility] 01/15/2025 08:58:09 Diagnostic colonoscopy completed [facility] [employer] 11/18/2021 22:12:54 total hysterectomy via vaginal approach completed [facility] 11/18/2021 22:14:17 dilation and curettage completed [facility] 11/18/2021 22:14:28 cystoscopy completed Chavez Rosa MD [address] [place], [address], [facility] [employer] 11/19/2021 12:09:11 Imaging Results None recorded. Procedure Notes None recorded. Medical Equipment None Reported. Allergies No known drug allergies Medications Name Sig Start Date Stop Date Status Note LastModified by Organization Details LastModified Time losartan 50 mg tablet TAKE 1 TABLET BY MOUTH DAILY active Not Available Not Available No t Available azithromy kassandra 250 mg tablet 08/29 completed Not Available Not Available Not Available hydrocodo ne 5 mg-acetam inophen 325 mg tablet TAKE 1 TABLET BY MOUTH EVERY 4 HOURS NEEDED FOR PAIN 08/23 completed Not Available Not Available Not Available promethaz ine 6.25 mg/5 mL oral syrup TAKE 5 ML BY MOUTH EVERY 4-6 HOURS NEEDED FOR COUGH 01/15 completed Not Available Not Available Not Available prednison e 20 mg tablet TAKE 2 TABLETS BY MOUTH DAILY 09/01 completed Not Available Not Available Not Available alendrona te 70 mg tablet TAKE 1 TABLET BY MOUTH WEEKLY 01/15 completed Not Available Not Available Not Available benzonata te 100 mg capsule TAKE 1 CAPSULE BY MOUTH THREE TIMES DAILY NEEDED FOR COUGH active Not Available Not Available No t Available losartan 25 mg tablet 2 tab daily 10/11 completed losartan 25 mg oral tablet RxNorm: 554461 Allow Substitu tion: True Refill Denied: No [...] oral Tablet, Extended Release 12 hr RxNorm: [id number] Allow Substitu tion: True Refill Denied: No Refill DateOccu rred: 01/11/20 18 Edited by: Pamela Brenner) on 11/02/19 21 Stopped by: Pamela Brenner) on Not Available Not Available Not Available metoprolo l succinate ER 25 mg tablet,ex tended release 24 hr TAKE 1 TABLET BY MOUTH EVERY MORNING active Not Available Not Available No t Available estradiol 0.01% (0.1 mg/gram) vaginal cream insert 1 gram by vaginal route 2 times per week 2024 active Not Available Not Available Not Avai lable fluticaso ne propionat e 50 mcg/actua tion nasal spray,angeline pension SHAKE LIQUID AND USE 2 SPRAYS IN EACH NOSTRIL DAILY active Not Available Not Available No t Available amoxicill in 875 mg-potass ium clavulana te 125 mg tablet 01/15 completed Not Available Not Available Not Available rosuvasta tin 10 mg tablet TAKE 1 TABLET BY MOUTH DAILY 09/01 completed Not Available Not Available Not Available rosuvasta tin 20 mg tablet active Not Available Not Available Not Available losartan 08/23 completed losartan RxNorm: [id number] Allow Substitu tion: False Refill Denied: No Refill DateOccu rred: 10/11/19 21 Edited by: Pamela Brenner) on 11/02/19 21 Stopped by: [email or web address]( Pamela Abdul) on Not Available Not Available Not Available Estrace 1/2 gm per vagina once weekly at bedtime 08/15 completed Estrace 0.1mg/1g m Vaginal Cream RxNorm: 471273 Allow Substitu tion: True Refill Denied: No Not Available Not Available Not Available Vitamin D3 active Not Available Not Available Not Available Ocuvite active Ocuvite RxNorm: 166580 Refill Denied: No Refill DateOccu rred: 07/05/20 21 Edited by: Aruelia Cordero ) on 07/05/20 21 Stopped by: Aurelia Cordero ) on Not Available Not Available Not Available Multivita mins 2017 active Multivit amins Allow Substitu tion: True Refill Denied: No Refill DateOccu rred: 01/11/20 18 Edited by: Louise Tanner ) on 10/11/19 21 Stopped by: Louise Tanner ) on Not Available Not Available Not [...] and Address Organization Details Last Updated DateTime 09/01/2025 167.64 cm 26.6 kg/m2 35423.02 g 162/88 mm[Hg] Gris Daniel [email or web address] 09/01/2025 14:02:47 Social History Question Answer Notes LastModified by [employer] Details LastModified Time Tobacco Smoking Status Never Smoker Georgiana Laila linares, [email or web address] [facility] 08/23/2022 10:18:46 Are You Blind Or Do You Have Difficulty Seeing? No Information not available 11/14/2022 Are You Deaf Or Do You Have Serious Difficulty Hearing? No Information not available 11/14/2022 What Type Of Diet Are You Following? REGULAR Information not available 11/14/2022 What Is The Highest Grade Or Level Of School You Have Completed Or The Highest Degree You Have Received? [id number] [email or web address] Information not available 01/15/2025 How Many Children [...] available 08/23/2022 Are you currently employed? No [email or web address] Information not available 06/21/2023 Do you or [...] Colon Cancer N Cytomegalovirus N Hyperthyroidism N Breast Cancer N Herpes (HSV) N Blood Transfusion N MRSA N Lung Cancer N Hypothyroidism N Depression N Incontinence N Panic Attacks N Neurological Disorder N Deep Vein Thrombosis N Anxiety Disorder N Autoimmune disease N Arthritis N Tuberculosis/Positive PPD N Shingles N Polycystic Ovarian Syndrome N Infertility N Cervical Cancer N Chlamydia N Hematuria N Stroke N Varicosities N Crohn's Disease N Seasonal allergies N Alzheimer's/Dementia N COPD/Emphysema N HPV/Genital Warts N Endometriosis N IBS (Irritable Bowel Syndrome) N History of Abnormal Pap N High Cholesterol Y Liver Disease N Kidney Infection N Fibromyalgia N Ulcer N Kidney Disease N HIV N Gallbladder disease N Sickle Cell Disease/Trait N Von Willebrand disease N ADD/ADHD N Eating Disorder N Anemia N Diabetes Mellitus (non-insulin dependent ) N Ovarian Problems N Multiple Sclerosis N Gonorrhea N Frequent Urinary Tract infections N Osteopenia Y Headaches/migraines N GERD (reflux) N Ovarian Cancer [...] Menopause 45 Date of Last Colonoscopy 10/08/2020 Date of last HPV 08/14/2017 Date of LMP Most Recent Bone Density 09/03/2024 Date of Last Pap Smear 08/14/2017 Most Recent Mammogram 03/27/2025 Current Control Method Hysterectom y Age at Menarche 12 11/23/2021 Obstetrics History GPAL:G 2 P 2 0 0 2 Type Value Full Term 2 Living 2 Total 2 Past Encounters Encounter ID Performer Location Encounter Start Date Encounter Closed Date Diagnosis/Indication Diagnosis SNOMED-CT Code Diagnosis ICD10 Code Diagnosis IMO Codes Diagnosis Note [id number] Minnie Norman MD [facility] [address] [facility] [place] [address] 09/01/2025 13:33:16 09/01/2025 14:28:18 Gynecologic examination 76325146 Z01.419 Menopause 067863304 Z78. 0 - Stop Fosamax (Osteopeni a, non treatable FRAX) - 09/2024 Please notify patient that Bone mass is low, however FRAX score does not indicate need for treatment at this time. Repeat bone density in 2-3 years Depression screening 171 558979 Z13.31 Atrophic vaginitis 73560 000 N95.2 98720 Health Concerns Section Related Observation LastModified by Organization Detai ls LastModified Time None Recorded Concern Status LastModified by Organization Details LastModified Time None Recorded Payers Encounter Date Sequence Insurance Name Policy Number Policy Hanson Covered Member ID Hanson Member ID Guarantor Name 09/01/2025 1 [place] Liyah Shah [id number] Liyah Shah 09/01/2025 2 [employer] (MEDICARE SUPPLEMENT) Liyah Shah [id number] Liyah Shah Notes Date Note Type Note Provider Name and Address Organization Details Recorded Time 09/01/2025 text/html Annual Home Health Specialist Post-MenopausalRe ported by Patient Liyah is here for an annual wwe. She is utd on mammograms, last done 03/2025. She is utd on Dexa scans, last done in 2023. She is utd on colonoscopy, last done in 10/2020. Both her screenings are 0. Pt bp is elevated today because she has been running errands all morning. She did take her bp meds today. Minnie Norman MD [address] [facility], [place], [address], [facility] [employer] [facility] 09/01/2025 14:27:13 OBGyn Episode No OBEpisode recorded.
--- OUTSIDE RECORDS SUMMARY | 2025-09-24 16:04 | XMS_ITS | Encounter Summary ---
Author Organization [facility] Address [address] [place] [address] Care Team Providers Care It Service Manager Name Role Phone Tal Cash MD Unavailable Beatrice Bowman NP Primary Care Provider [phone] Reason for Visit * Reason Onset Date Comments Epistaxis (Nose Bleed) 09/24/2025 Encounter Details Date Type Department Care Team (Late st Contact Info) Description 09/24/2025 Telephone [facility] Cardiology [address] [facility] [address] [place] [address] Willie Valiente MD [address] [facility] [address] [place] [address] [facility] [place] [address] Epistaxis (Nose Bleed) Social History Tobacco Use Types Packs/Day Years Used Date Smoking Tobacco: Never Cigarettes Smokeless Tobacco: Never Alcohol Use Standard Drinks/Week Comments Yes 0 (1 standard drink = 0.6 oz pur e alcohol) RARE Comments Unknown Sex and Gender Information Value Date Recorded Sex Assigned at Not on file 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 States that Dr. Sheffield's office sent in the order. Contact [phone] RIGGER * Telephone Encounter - Elizabeth Yepez RN - 09/24/2025 3:02 PM HEAD RIGGER Spoke with pt, pt states that on Sunday she bumped her head on a tailgate on the right side of her head just above her ear. Pt states she didn't think anything of it because she didn't hit it that hard. There is no bruising, swelling, tenderness to area. Pt reports she has been dealing with sinus drainage and cough since last week and is using nasal spray and cough medicine prescribed by her pcp.She noted some blood streaking to her nasal drainage the past couple days and is concerned that it may be related to her bumping her head. The blood is not every time she blows her nose. Pt denies any dizziness, n/v, headache, or confusion. Advised pt that the blood in her nasal drainage is most likely not related to her bumping her head 3 days ago. Pt states she also has a call out to her PCP todiscuss. Will forward to for his recommendations. Please advise. RIGGER * Telephone Encounter - Nathalia Gonsalves - 09/24/2025 1:32 PM CST Pt states that she recently bumped her head and since then anytime she blows her nose there is blood. States that she is concerned because she is on eliquis. Please advise. Thank you. Contact [phone] RIGGER documented in this encounter Plan of Treatment Not on file documented as of this encounter Visit Diagnoses Not on filedocumented in this encounter Care Teams It Service Manager Relationship Specialty Start Date End Date Beatrice Bowman NP [address] [place] [address] PCP - General Nurse Practitioner 01/25/24 Tal Cash MD [address] [place] [address] Consulting Physician Rheumatology 02/26/19 documented as of this encounter
--- OUTSIDE RECORDS SUMMARY | 2025-09-24 16:04 | XMS_ITS | Clinical Summary ---
Author Organization [facility] Address [address] [address] Care Team Providers Care Hse Manager Name Role Phone Unavailable Primary Care Provider Unavailabl e Source Comments [facility] [employer],non-owned Affiliates and Associated Physician Practices is amultiple site organization consisting of ambulatory clinics and hospital sitesin [place], [place], [place] and [place]. This disclosure is being madepursuant to the Care Everywhere program and may not contain all information available regarding this patient. 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
--- OUTSIDE RECORDS SUMMARY | 2025-09-24 16:04 | XMS_ITS | Clinical Summary ---
Author Organization [facility] Address [address] [place] [address] Phone Care Team Providers Care Merchandise Marker Name Role Phone Unavailable Primary Care Provider Unavailabl e Allergies No known active allergies Medications losartan (COZAAR) 50 MG Tablet Take 50 mg by mouth daily. Active Social History Tobacco Use Types Packs/Day Years Used Date Smoking Tobacco: Never Assessed Comments Unknown Sex and Gender Information Value Date Recorded Sex Assigned at Not on file Legal Sex Female 11:51 AM BAR USEFUL OR BUSSER Gender Identity Not on file Sexual Orientation [...] 12/10/2005 Influenza Immunization (#1) 2025 SARS-COV-2 Immunization (2024- season) 2025 Respiratory Syncytial Virus (RSV) Immunization [...]
--- OUTSIDE RECORDS SUMMARY | 2025-09-24 16:04 | XMS_ITS | Data Portability ---
Author Organization [employer] , [facility]_Nikita Address [address] [place] [address] Assessment Encounter Date Assessment Date Assessment LastModified by Organization Details LastModified Time 08/23/2022 08/23/2022 Annual briar wood sorter: No Pap per ACOG/ ASCCP guidelines based [...] in 2019), hip R -0.8 (-0.7 in 2019) and hip L -1.1 (-0.9 in 2019) [...] Imaging MAMMO, screening, digital, bilateral [address], [address], [place], [address], 15:06:04 Medication Orders estradiol 0.01% (0.1 mg/gram) vaginal cream 2024 [id number], [address], [place], [id number], 14:26:23 estradiol 0.01% (0.1 mg/gram) vaginal cream 2024 025 [facility] #[id number], [address] [facility], [place], [place], [id number], 09:27:47 Patient TargetsNo targets recorded. Patient Instructions Encounter Date Encounter Id Patient Instructions Last Modified By Organization Details Last Modified Time 08/23/2022 [id number] protect bone with calcium and vitamin D kthanapandan Not available 10/17/2022 18:58:56 A healthy lifestyle: care instructions kthanapandan Not available 10/17/2022 18:58:56 calcium and vitamin D combination kthanapandan Not available 10/17/2022 18:58:56 depression (women only) kthanapandan Not available 10/17/2022 18:58:56 eating healthy foods: care instructions kthanapandan Not available 10/17/2022 18:58:56 exercise program: getting started kthanapandan Not available 10/17/2022 18:58:56 06/21/2023 [id number] abuse/domestic violence education Not available 06/21/2023 12:10:52 eating healthy foods: care instructions Not available 06/21/2023 12:10:52 weight management education Not available 06/21/2023 12:10:53 09/01/2025 [id number] A healthy lifestyle: care instructions Not available 09/01/2025 14:26:01 substance use disorder: care instructions Not available 09/01/2025 14:26:01 calcium and vitamin D combination Not available 09/01/2025 14:26:01 depression (women only) Not available 09/01/2025 14:26:01 eating healthy foods: care instructions Not available 09/01/2025 14:26:01 exercise program: getting started Not available 09/01/2025 14:26:01 protect bone with calcium and vitamin D Not available 09/01/2025 14:26:01 osteoporosis education Not available 09/01/2025 14:26:01 Reason for Referral None Reported. Results Created Date Observation Date Name Description Value Unit Range Abnormal Flag Note LastModifiedBy Organization Detail LastModifiedTime 09/19/20 22 09/02/2022 MAMMO , scree sahra, digit al, bilat eral No observ ation record ed. [email or web address] [address], [address], 01/08/2023 01:41:01 09/09/20 24 09/03/2024 bone densi ty No observ ation record ed. [email or web address] [address], [place], [address], 09/11/2024 17:16:18 Result Notes None recorded. Problems Name Problem SNOMED Code Status Onset Date Resolution Date Notes Provider Name and Address Organization Details Recorded Time Bone density finding 172437468 Completed 201710/19/2020 Other specifie d disorder s of bone density and structur e, unspecif ied site; Progress : Stable Added By: Emily Lockwood Add to Current Problems : NO ProblemS tatus: Resolve Not Available [facility] 2 21:42:02 Disorder of bone and articula r cartilag e 368106863 Completed 201710/19/2020 Osteopen ia; Location : None Progress : Stable Added By: Emily Lockwood Add to Current Problems : YES ProblemS tatus: Current Osteopen ia; Progress : Stable Added By: Emily Lockwood Add to Current Problems : NO ProblemS tatus: Resolve Not Available [facility] 2 21:42:03 Hormone replacem ent therapy Completed 201710/19/2020 Hormone replacem ent therapy; Progress : Stable Added By: Marii Victoria Add to Current Problems : NO ProblemS tatus: Resolve Post-men opausal HRT; Location : None Progress : Stable Added By: Marii Victoria Add to Current Problems : YES ProblemS tatus: Current Not Available [facility] 2 21:42:02 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 31091892 Completed 201710/19/2020 Arrhythm ia, unspecif ied; Progress : Stable Added By: Nima Bahena Add to Current Problems : NO ProblemS tatus: Resolve Not Available [facility] 2 21:42:02 Ectopic rhythm 46293584 Completed 201710/19/2020 Arrhythm ia, unspecif ied; Location : None Progress : Stable Added By: Nima Bahena Add to Current Problems : YES ProblemS tatus: Current Other specifie d cardiac arrhythm ias; Progress : Stable Added By: Nima Bahena Add to Current Problems : NO ProblemS tatus: Resolve Not Available [facility] 2 21:42:02 Sampling of vagina for Papanico laou smear Completed 201810/19/2020 Encounte r for gynecolo gical examinat ion (general ) (routine ) without abnormal findings ; Severity : Moderate Progress : Stable Added By: Adriana Britt Add to Current Problems : NO ProblemS tatus: Resolve Merlene Arnett null, [employer] [facility] 3 11:14:22 Hyperlip idemia 71537561 Completed 201910/19/2020 Hyperlip idemia, unspecif ied; Progress : Stable Added By: Emily Lockwood Add to Current Problems : NO ProblemS tatus: Resolve Not Available [facility] 2 21:42:03 Procedur e Completed 202011/19/2021 Encounte r for other preproce dural examinat ion; Severity : Moderate Progress : Stable Added By: Pamela Abdul Add to Current Problems : YES ProblemS tatus: Current Pamela Abdul null, [facility] 2 11:44:50 Disorder of pelvic region of trunk Completed 202011/19/2021 Cystocel e, unspecif ied; Severity : Moderate Progress : Stable Added By: Pamela Abdul Add to Current Problems : YES ProblemS tatus: Current Pamela Abdul null, [employer] [facility] IV 11:44:36 Postoper ative care Completed 202011/19/2021 Encounte r for surgical aftercar e followin g surgery on the genitour inary system; Severity : Moderate Progress : Stable Added By: Pamela Abdul Add to Current Problems : YES ProblemS tatus: Current Pamela Abdul null, [employer] [facility] IV 11:44:45 Problem Notes None recorded. Procedures Surgical History Date Name Laterality Status Provider Name and Address Organization Details Recorded Time 03/27/20 25 Most Recent Mammogram completed Gris Daniel [place] - [facility] 09/01/2025 13:59:16 09/03/20 24 Most Recent Bone Density completed Joselin [facility] 01/15/2025 08:57:45 11/23/19 22 completed Georgiana Ulloa [place] [facility] 08/23/2022 10:27:10 04/08/20 21 Anterior colporrhaphy completed Chavez Rosa MD [address] [place] [address], [phone] IV 11/19/2021 11:57:22 10/08/19 21 Date of Last Colonoscopy completed Merlene Arnett [facility] 06/21/2023 11:44:28 08/14/20 17 Date of Last Pap Smear [facility] 11/18/2021 22:12:15 Vaginal hysterectomy completed Joselin Rienzi [facility] 01/15/2025 08:58:09 Diagnostic colonoscopy completed Lucinda [facility] 11/18/2021 22:12:54 total hysterectomy via vaginal approach completed Lucinda [facility] 11/18/2021 22:14:17 dilation and curettage completed [facility] 11/18/2021 22:14:28 cystoscopy completed Chavez Rosa MD [address] [place] [address], [phone], [facility] 11/19/2021 12:09:11 Imaging Results None recorded. Procedure [...] completed losartan 25 mg oral tablet RxNorm: [id number] Allow Substitu tion: True Refill Denied: No [...] oral Tablet, Extended Release 12 hr RxNorm: [id number] Allow Substitu tion: True Refill Denied: No [...] Not Available losartan 08/23 completed losartan RxNorm: 209927 Allow Substitu tion: False Refill Denied: No Refill DateOccu rred: 10/11/19 21 Edited by: Pamela Brenner) on 11/02/19 21 Stopped by: Pamela Brenner) on Not Available Not Available Not Available Estrace 1/2 gm per vagina once weekly at bedtime 08/15 completed Estrace 0.1mg/1g m Vaginal Cream RxNorm: 447810 Allow Substitu tion: True Refill Denied: No Not Available Not Available Not Available Vitamin D3 active Not Available Not Available Not Available Ocuvite active Ocuvite RxNorm: 574734 Refill Denied: No Refill DateOccu rred: 07/05/20 [...] Updated DateTime 11/14/2022 167.64 cm 24.8 kg/m2 12698.0 7 g 98 [degF] 122/78 mm[Hg] Malena Alas [employer] IV 16:24:25 Date Recorded Body weight Body mass index (BMI) Body height Systolic And Diastolic Provider Name and Address Organization Details Last Updated DateTime 01/15/2025 63096.96 g 26.1 kg/m2 167.64 cm 142/80 mm[Hg] Joselin Arnett [employer] [facility] 01/15/2025 08:57:20 Date Recorded Body height Body mass index (BMI) Body weight Systolic And Diastolic Provider Name and Address Organization Details Last Updated DateTime 06/21/2023 167.64 cm 25.1 kg/m2 90231.25 g 130/76 mm[Hg] Merlene Arnett [facility] IV 06/21/2023 11:43:38 Date Recorded Body height Body mass index (BMI) Body weight Systolic And Diastolic Provider Name and Address Organization Details Last Updated DateTime 08/23/2022 167.64 cm 24.7 kg/m2 18722.63 g 126/82 mm[Hg] Georgiana Ulloa [facility] IV 08/23/2022 10:21:51 Date Recorded Body height Body mass index (BMI) Body weight Systolic And Diastolic Provider Name and Address Organization Details Last Updated DateTime 09/01/2025 167.64 cm 26.6 kg/m2 89612.02 g 162/88 mm[Hg] Gris Daniel [facility] IV 09/01/2025 14:02:47 Social History Question Answer Notes LastModified by Organizat ion Details LastModified Time Tobacco Smoking Status Never Smoker [facility] 08/23/2022 10:18:46 Are You Blind Or Do You Have Difficulty Seeing? No Information not available 11/14/2022 Are You Deaf Or Do You Have Serious Difficulty Hearing? No Information not available 11/14/2022 What Type Of Diet Are You Following? REGULAR Information not available 11/14/2022 What Is The Highest Grade Or Level Of School You Have Completed Or The Highest Degree You Have Received? [id number] [email or web address] Information not available 01/15/2025 How Many Children [...] available 08/23/2022 Are you currently employed? No Information not available 06/21/2023 Do you or [...] N Breast Cancer N Lung Cancer N Hypothyroidism N Depression N Incontinence N Panic Attacks N Neurological Disorder N Deep Vein Thrombosis N Anxiety Disorder N Autoimmune disease N Arthritis N Shingles N Tuberculosis/Positive PPD N Infertility N Polycystic Ovarian Syndrome N Cervical Cancer N Chlamydia N Hematuria N Stroke N Varicosities N Seasonal allergies N Crohn's Disease N Alzheimer's/Dementia N COPD/Emphysema N Endometriosis N HPV/Genital Warts N IBS (Irritable Bowel Syndrome) N History of Abnormal Pap N High Cholesterol Y Liver Disease N Kidney Infection N Fibromyalgia N Ulcer N Kidney Disease N HIV N Gallbladder disease N Von Willebrand disease N Sickle Cell Disease/Trait N ADD/ADHD N Eating Disorder N Diabetes Mellitus (non-insulin dependent ) N Anemia N Ovarian Problems N Multiple Sclerosis N Gonorrhea N Frequent Urinary Tract infections N Osteopenia Y Headaches/migraines N GERD (reflux) N Ovarian Cancer N Diabetes (insulin dependent) N Seizures/Epilepsy N Breast Problems N Fibroids N Asthma N Heart Attack N Endometrial Cancer N Lupus N Rubella N Blood Clotting Disorder N [...] ICD10 Code Diagnosis IMO Codes Diagnosis Note [id number] Chavez Rosa MD [address] [address] 11/19/2021 10:43:07 11/23/2021 12:07:04 Prolapse of vaginal vault after hysterectomy 53524240 N99.3 great support Menopause 759254933 N95. 1 discussed any form of transderma l estrogen and possiblyy prometrium 100mg daily o as well as possibly osphena and vagifem... .can do any combinatio n and will call [facility] for any hormone regimen if desires to [facility] in [facility] for estrogen cream vaginally or E,P,and or Testostero ne cream combinatio n and we would use estriol only as a form of estrogen for least amt of stimulatio n to the breast if desiresFOL LOW-UP: Schedule follow-up appointmen ts on a p.r.n. basis. . Right side sciatica [id number] 878394 77932 M54.31 wrote order [id number] GURDEEP SMITH MD [address] [place] [address] 08/23/2022 10:08:22 10/19/2022 14:21:42 Gynecologic examination 12370928 Z01.419 Midline cystocele 064289 003 N81.11 [id number] GURDEEP SMITH MD [address] [address] 11/14/2022 15:54:32 11/28/2022 15:21:10 Postmenopausal osteopenia 632595362 M85.80 [id number] Minnie Norman MD [address] [address] 06/21/2023 10:49:57 06/21/2023 17:46:51 Gynecologic examination 68618910 Z01.419 Stop Fosamax (Osteopeni a, non treatable FRAX). Repeat DXA 08/2024 Screening for malignant neoplasm of breast 060181235 Z12.31 after 09/02/2023 Depression screening 171 043444 Z13.31 [id number] Minnie Norman MD [facility] [address] [place] [address] 01/15/2025 08:47:45 01/15/2025 09:42:54 Menopause 837755672 N95.1 -Continue with estradiol cream twice a [...] [place] and has been documented accordingl y. [id number] Minnie Norman MD [facility] [address] [place] [address] 09/01/2025 13:33:16 09/01/2025 14:28:18 Gynecologic examination 78489146 Z01.419 Menopause 326575294 Z78. 0 - Stop Fosamax (Osteopeni a, non treatable FRAX) - 09/2024 Please notify patient that Bone mass is low, however FRAX score does not indicate need for treatment at this time. Repeat bone density in 2-3 years Depression screening 171 328273 Z13.31 Atrophic vaginitis 08015 000 N95.2 82069 Health Concerns Section Related Observation LastModified by Organization Detai ls LastModified Time None Recorded Concern Status LastModified by Organization Details LastModified Time None Recorded Advance Directives Directive None Recorded Payers Insurance Date Sequence Insurance Name Policy Number Policy Hanson Covered Member ID Hanson Member ID Guarantor Name 08/29/2025 1 [place] Liyah Shah [id number] Liyah Shah 01/20/[address] [facility] (MEDICARE SUPPLEMENT) Liyah Shah [id number] Liyah Shah 08/27/2025 2 [employer] (MEDICARE SUPPLEMENT) Liyah Shah [id number] Liyah Shah Notes Date Note Type Note Provider Name and Address Organization Details Recorded Time 2 text/html Annual GYNReported by PatientGenitourinary symptomsFor [...] woman66 year old P2L2 here for annual briar wood sorter Incident Handler concerns: noneMenopause:HRT:on E2 vaginal creamSexually active Last Mammo olonoscopy MD scheduled for 09/02 @ [facility]/ [facility]oPCP: Dr. Llanos, James @ [place] GURDEEP JUDD MD [address] [place] [address], [phone], [facility] IV 10/17/2022 19:00:35 3 text/html Patient is here to discuss bone density test with providerKnown Hx of Osteopenia, started on some meds by PCP- unsureTakes vitamin and Ca GURDEEP JUDD MD [address] [place] [address], [phone], [facility] [employer] IV 01/13/2023 23:00:59 3 text/html Annual Incident Handler Post-MenopausalReported by PatientGenitourinary symptomsFor menopausal symptoms, patient [...] scan08/2022, last colonoscopy 2020 Minnie Norman MD [address] [place] [address], [phone], [employer] [facility] 06/21/2023 12:20:46 5 text/html ROS as noted in the HPI Liyah is here today because she needs a refill on her medication. Refill on her estradiol cream. She had a hysterectomy, doesn't have periods anymore. Patient is doing well with estrogen cream and has questions about her WWE. Minnie Norman MD [address] [place] [address], [phone], [facility] [employer] IV 01/15/2025 09:31:53 5 text/html Annual Incident Handler Post-MenopausalReported by Patient Liyah is here for an [...] her bp meds today. Minnie Norman MD [address] [place] [address], [phone], [employer] IV 09/01/2025 14:27:13 OBGyn Episode No OBEpisode recorded.
--- OUTSIDE RECORDS SUMMARY | 2025-09-24 16:04 | XMS_ITS | Clinical Summary ---
Author Organization [facility] [address] Address [address] [place] [address] Phone Care Team Providers Care Certified Ophthalmic Technologist Name Role Phone Tal Cash MD Unavailable [phone] Beatrice Bowman NP Primary Care Provider [phone] Allergies No known active allergies Medications cholecalciferol , vitamin D3, (VITAMIN D3 ORAL) Vitamin D3 1qd Active folic acid/multivit-m in/lutein (CENTRUM SILVER ORAL) Take by mouth daily Active vit C/E/zinc/lutein /zeaxanthin (OCUVITE EYE HEALTH ORAL) Take by mouth daily Active fluticasone propionate (FLONASE) 50 mcg/actuation nasal spray 2 sprays daily 4 Active losartan (COZAAR) 50 mg tablet Take 1 tablet (50 mg total) by mouth daily 4 Active metoprolol XL (TOPROL-XL) 25 mg extended release tablet TAKE 1 TABLET(25 MG) BY MOUTH EVERY MORNING 90 tablet 3 5 Active Eliquis 5 mg tablet TAKE 1 TABLET(5 MG) BY MOUTH EVERY 12 HOURS 180 tablet 2 5 Active rosuvastatin (CRESTOR) 20 mg tablet TAKE 1 TABLET(20 MG) BY MOUTH DAILY 90 tablet 5 Active benzonatate (TESSALON) 100 mg capsule by other route 5 Active aspirin 81 mg enteric coated tablet Take 1 tablet (81 mg total) by mouth daily 90 tablet 3 4 09/02/20 25 Discontinu ed(Alterna te therapy) Active Problems Problem Noted Date Diagnosed Date Coronary artery disease invo lving deering coronary artery of deering heart without angina pectoris 09/17/2024 Paroxysmal atrial [...] 09/24/2018 Mitral valve prolapse 09/24/2018 Palpitations 09/24/2018 Encounters Date Type Department Care Team Description 09/24/2025 Telephone [facility] Cardiology [address] [place] [address] Willie Valiente MD Epistaxis (Nose Bleed) 09/02/2025 9:45 AM VEGETABLE WASHER Office Visit [facility] Medical [facility] Cardiology [address] [place] [address] Willie Valiente MD Paroxysmal atrial fibrillation (HCC) (Primary Dx); Chronic anticoagulation; Mild CAD; Primary hypertension from Last 3 Months Immunizations Immunization Administration Dates Next Due Flucelvax [...] on file Legal Sex Female 8:45 AM VEGETABLE WASHER Gender Identity Not on file Sexual Orientation Not on file Last Filed Vital Signs Vital Sign Reading Time Taken Comments Blood Pressure 138/80 09/02/2025 9:38 AM VEGETABLE WASHER Pulse 79 09/02/2025 9:38 AM VEGETABLE WASHER Temperature - - Respiratory Rate - - Oxygen Saturation 97% 09/02/2025 9:38 AM VEGETABLE WASHER Inhaled Oxygen Concentration - - Weight 75 kg (165 lb 6.4 oz) 09/02/2025 9:38 AM VEGETABLE WASHER Height 163.8 cm (5' 4.5) 09/02/2025 9:38 AM VEGETABLE WASHER Body Mass Index 27.95 09/02/2025 9:38 AM VEGETABLE WASHER Plan of Treatment Health Maintenance Due Date Last Done Comments Breast Cancer Screening-Mammogram 1955 Colon Cancer Screening-Colonoscopy 1955 Depression Screening 1955 Fall Risk Assessment 1955 Hepatitis C Screening 1955 Osteoporosis Screening-Bone Density Scan 1955 Hepatitis B Screening 12/10/1973 Pneumococcal vaccine 65+ (1 of 1 - PCV) 12/10/2005 Well Visit 65+ 12/10/2020 Covid-19 Vaccine (4 - 2024-2 6 season) 2025 01/17/2022, 08/25/2021, 12/10/2020 Influenza Vaccine (#1) 2025 , 07/13/2020, 07/13/2020, Additional history exists DTaP/Tdap/Td Vaccine (2 - Td or Tdap) 07/23/2035 07/23/2025 Zoster Vaccine Completed 10/27/2020, 07/13/2020 Procedures Procedure Name Priority Date/Time Associated Diagnosis Comments POCT LIPID PANEL Routine 09/02/2025 10:2 6 AM VEGETABLE WASHER Primary hypertension ELECTROCARDIOGRAM REPORT Routine 025 10:25 AM VEGETABLE WASHER Paroxysmal atrial fibrillation (HCC) from Last 3 Months Results * (ABNORMAL) POCT lipid panel (09/02/2025 10:26 AM VEGETABLE WASHER) Cholesterol, POC 155 <200 MG/DL HDL, POC 63 >=40 mg/dL Triglycerides, POC 247(A) <=149 mg/dL LDL Cholesterol POC 43 <=129 mg/dL Chol/HDL Ratio, POC 0.7 NONE Non-HDL Cholesterol, POC 93 NONE mg/dL Cholesterol Total, POC 155 30 - 199 mg/dL Capillary blood 09/02/2025 1 0:26 AM VEGETABLE WASHER us Willie Valiente MD POINT OF CARE TEST ORDERABLES Fi nal Result * Electrocardiogram Report (09/02/2025 10:25 AM VEGETABLE WASHER) us Willie Valiente MD ECG ORDERABLES Edited Result - Final from Last 3 Months Insurance [facility] MEDICARE [facility] MEDICARE [employer] Care Teams Certified Ophthalmic Technologist Relationship Specialty Start Date End Date Beatrice Bowman NP [address] [place] [address] PCP - General Nurse Practitioner 01/25/24 Tal Cash MD [address] [place] [address] Consulting Physician Rheumatology 02/26/19
--- OUTSIDE RECORDS SUMMARY | 2025-09-24 16:04 | XMS_ITS | Encounter Summary ---
Author Organization [facility] Address [address] [place] [address] Care Team Providers Care Employment Programs Analyst Name Role Phone Unavailable Primary Care Provider Unavailabl e Encounter Details Date Type Department Care Team (Late st Contact Info) Description 08/27/2018 Lab Requisition [facility] [address] [place] [address] Tiara Robbins MD [address] [facility] [address] [place] [address] Social History Tobacco Use Types Packs/Day Years Used Date Smoking Tobacco: Never Assessed Comments Unknown Sex and Gender Information Value Date Recorded Sex Assigned at Not on file Legal Sex Female 6:32 AM IRON ERECTOR Gender Identity Not on file Sexual Orientation Not on file documented as of this encounter Plan of Treatment Not on file documented as of this encounter Procedures Procedure Name Priority Date/Time Associated Diagnosis Comments DERMATOPATH TECHNICAL REPORT Routine 08/23/2018 12:00 AM IRON ERECTOR documented in this encounter Results * DERMATOPATH TECHNICAL REPORT (08/23/2018 12:00 AM IRON ERECTOR) Case Report Dermatopathology Report Case: [id number] Authorizing Provider: Tiara Robbins MD Collected: 08/23/2018 12:00 AM Pathologist: Zenaida Altman MD Received: 08/27/2018 07:01 AM Specimen: Skin, left anterior inferior foss 8 12:16 PM IRON ERECTOR DERMATOPATHOLOGY LABORATORY Addendum 1 At the request of the diagnosing physician, the technical component for MART-1/Melan A was performed by [facility] Dermatopathology Laboratory. 12:16 PM [facility] DERMATOPATHOLOGY [facility]ORATORY Addendum electronically signed by Zenaida Altman MD on 09/02/2018 at 1216 IRON ERECTOR Clinical History R/O Nevus, irregular border, irregular color 12:16 PM [facility] DERMATOPATHOLOGY LABORATORY Gross Description Specimen A: Received is one formalin filled container labeled with the patient's name and designated left anterior inferior foss. The specimen consists of a shave biopsy measuring 6x6x1 mm. Jar 0. [facility] Dermatopathology Laboratory performed the technical component only. 12:16 PM [facility] DERMATOPATHOLOGY LABORATORY Embedded Images 12:16 PM [facility] DERMATOPATHOLOGY LABORATORY DISCLAIMER An external and internal positive and negative controls are appropriate for the histochemical, immunohistochemical and immunofluorescence stain(s) in this case (if any), except where stated explicitly. The performance characteristics of the stain(s) cited in this report were developed and its performance characteristic determined by the Dermatopathology Laboratory at [facility]. These tests need not be, and therefore are not, approved by the [place] Food and Drug Administration. The tests are used for clinical purposes. 12:16 PM [facility] DERMATOPATHOLOGY LABORATORY at 1328 IRON ERECTOR Pathology/Cytolog y TISSUE SPECIMEN FROM SKIN / Unknown 08/23/2018 08/27/2018 7:01 AM IRON ERECTOR Tiara Robbins MD LAB - PATHOLOGY/CYTOLOGY OR DERABLES Edited Result - Final DERMATOPATHOLOGY LABORATORY [facility] - Department of Dermatology [address], [address] [place] [address], [place] [phone] documented in this encounter Visit Diagnoses Not on filedocumented in this encounter
--- OUTSIDE RECORDS SUMMARY | 2025-09-24 16:04 | XMS_ITS | Data Portability ---
Author Organization [place] - [facility] OFFICE Address [address] [place] [address] Care Team Providers Care Tank Maker Wood Name Role Phone SHEN PLAAZ Primary Care Provider [phone] Assessment No assessment recorded. Plan of Treatment [...] By Organization Details Last Modified Time 09/24/2018 22499 Exercise advised Low cholesterol diet advised Low sodium diet advised. This document was scribed by Savana Novoa PA-C. [email or web address] Not available 09/24/2018 16:58:45 10/20/2019 68993 low cholesterol diet [email or web address] Not available 10/20/2019 [...] Address Organization Details Recorded Time Essential hypertension 80419671 Active 2017 Savana Peludat [facility], [place] - [facility] 8 16:58:01 Mitral valve prolapse 701654041 Active 2017 Savana Peludat [place], [place] - [facility] 8 16:58:12 Edema of lower extremity 450473248 Active 2017 Savana Peludat [place], [place] [facility] 8 16:58:17 Electrocardiog omar abnormal 441541736 Active 2017 Savana Peludat [place], [place] [facility] 8 16:58:28 Palpitations 20417529 Active 2017 Diego Mojica i, MD [address] [place], [address] [place] [address] - [facility] 8 17:10:21 Dyslipidemia 591171524 Active 2019 Husam Cotter [facility], [place] - [facility] 0 10:07:03 Problem Notes None recorded. Procedures Surgical History Date Name Laterality Status Provider Name and Address Organization Details Recorded Time Vaginal hysterectomy completed Emely Armijo [place] - [facility] 09/24/2018 16:42:20 Imaging [...] (BMI) Body weight Heart rate Oxygen saturation Systolic And Diastolic Provider Name and Address Organization Details Last Updated DateTime 9 167.64 cm 24.5 kg/m2 10406.0 4 g 43 /min 98 % 158/88 mm[Hg] LINSEY Quesada [facility] 9 18:13:35 Date Recorded Body height Body mass index (BMI) Body weight Heart rate Respiratory rate Oxygen saturation Systolic And Diastolic Provider Name and Address Organization Details Last Updated DateTime 0 167.64 cm 25.7 kg/m2 77929.1 9 g 86 /min 18 /min 98 % 148/82 mm[Hg] Mary Daniel [facility] 0 10:28:28 Date Recorded Body height Body mass index (BMI) Body weight Oxygen saturation Heart rate Systolic And Diastolic Provider Name and Address Organization Details Last Updated DateTime 9 167.64 cm 24.5 kg/m2 36614.0 4 g 96 % 94 /min 118/66 mm[Hg] PAO DURANT [facility] 9 17:52:00 Date Recorded Body weight Body mass index (BMI) Body height Heart rate Oxygen saturation Systolic And Diastolic Provider Name and Address Organization Details Last Updated DateTime 8 12962.3 g 27.6 kg/m2 167.64 cm 77 /min 98 % 128/80 mm[Hg] Emely Armijo [facility] 8 16:46:41 Social History Question Answer Notes LastModified by Organizat ion Details LastModified Time Tobacco Smoking Status Never Smoker Not Available [facility] 08/10/2020 03:30:41 What Is Your Level Of Caffeine Consumption? Moderate [id number] Information not available 08/10/2020 How Much Tobacco Do You Chew? None [id number] Information not available 08/10/2020 What Type Of Diet Are You Following? REGULAR [id number] Information not available 08/10/2020 Which Illicit Or Recreational Drugs Have You Used? No [id number] Information not available 08/10/2020 Marital Status Informatio n not available 09/24/2018 What Was The Date Of Your Most Recent Tobacco Screening? 09/24/2018 [id number] Information not available 08/10/2020 How Many Children Do You Have? 2 [id number] Information not available 08/10/2020 How Much Tobacco Do You Smoke? No [id number] Information not available 08/10/2020 How Many Years Have You Smoked Tobacco? 0 [id number] Information not available 08/10/2020 Sex: Unknown Functional Status Question Answer Note LastModified by Organizat ion Details LastModified Time What is your level of alcohol consumption? 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 Information not available 09/24/2018 What is your exercise level? Occasional [id number] Information not available 08/10/2020 Mental Status None [...] ICD10 Code Diagnosis IMO Codes Diagnosis Note [id number] Diego Goldberg MD [facility] [address] [place] [address] 09/24/2018 16:25:16 10/04/2018 10:25:43 Edema of lower extremity 287351465 R60.0 Wears compressio n stockings. Mitral valve prolapse 40 3474676 I34.1 Essential hypertension 76097970 I10 Well controlled today. Electrocar diogram abnormal 896852478 R94.31 Will get exercise stress echo, to look for any new ischemia. Educated to cut down on Caffeine. Palpitations 27780206 R0 0.2 Will order 24 Hour Holter Monitor to evaluate for arrhythmia . 22245 Diego Goldberg MD [facility] [address] [place] [address] 10/15/2018 17:30:01 10/15/2018 18:39:34 Electrocardiogram abnormal 868979897 R94.31 Will get exercise stress echo, to look for any new ischemia. Educated to cut down on Caffeine. Palpitations 14871796 R0 0.2 Will order 24 Hour Holter Monitor to evaluate for arrhythmia . Edema of l ower extremity 863735971 R60.0 Wears compressio n stockings. Mitral valve prolapse 40 8586633 I34.1 Essential hypertension 15328163 I10 Blood pressure is elevated today, but this is only one reading, will keep close follow up, and consider medication change if blood pressure is still elevated next visit. Atypical chest pain 1025 22413 R07.89 Will get exercise stress echo, to look for any structural heart disease, and to look for any ischemia [id number] MD [facility] Office [address] [place] [address] 05/07/2019 17:31:17 05/07/2019 18:13:28 Electrocardiogram abnormal 348699957 R94.31 Will get exercise stress echo, to look for any new ischemia. Educated to cut down on Caffeine. Palpitations 94939254 R0 0.2 Will order 24 Hour Holter Monitor to evaluate for arrhythmia . Edema of l ower extremity 773986700 R60.0 Wears compressio n stockings. Mitral valve prolapse 40 5082393 I34.1 Essential hypertension 70682621 I10 Now well controlled Atypical chest pain 1025 89796 R07.89 stable now Dyslipidemia 165880968 E 78.5 Needs to keep LDL less than 70, and HDL more than 40 Will get lipid profile results from PCP 01119 MD Hayley [facility] Office [address] [place] [address] 10/20/2019 10:12:53 10/20/2019 11:17:06 Electrocardiogram abnormal 265236886 R94.31 Stress echo normal Palpitations 82558593 R0 0.2 Occasional . Mitral valve prolapse 40 3783725 I34.1 10/02/18-S TRE ECHO-Negat malachi stress echo for ischemia. MVP noted on baseline images. Essential hypertension 41945915 I10 Blood pressure is elevated today, but this is only one reading, will keep close follow up, and consider medication change if blood pressure is still elevated next visit. Dyslipidemia 996083818 E 78.5 Needs to keep LDL less [...] Hanson Member ID Guarantor Name 10/20/2019 1 [facility] [id number] Jeremy Shah [id number] Liyah Shah 10/15/2018 1 [facility] Jeremy Shah [id number] Liyah Shah 10/20/2019 1 [facility] [id number] Liyah Shah [id number] Liyah Shah Notes Date Note Type Note Provider Name and Address Organization Details Recorded Time 09/24/2018 text/html 09/24/18 CC: Abnormal EKG 62 year-old woman with history of MVP, HTN, presents for cardiac consultation with a chief complaint of abnormal EKG. Patient stated having EKG done at [facility]. Will obtain copy. She was at her OB on 08/11/18 and was told she had an extra heart beat, which is new. She went to [place] as an Outpatient and had an EKG, blood work and CXR which were negative except for EKG showing PVC. She has a family history of father who at 43 from an DC. No known history of coronary artery disease. No history of previous myocardial infarction. No history of heart failure. History of valvular heart disease, MVP. No known arrhythmia. Reports history of echo years ago at [place]. No prior stress test, or left heart [...] from the past: Diego Goldberg MD [address] [place], [address], [facility] 09/24/2018 22:40:27 10/15/2018 text/html 10/15/18 CC: Abnormal EKG 62 year-old woman with history of MVP, HTN, presents for cardiac consultation with a chief complaint of dyspnea on exertion, and has abnormal EKG. Patient stated having EKG done at [facility]. She was at her OB on 08/11/18 and was told she had an extra heart beat, which is new. She went to [place] as an Outpatient and had an EKG, blood work and CXR which were negative except for EKG showing PVC. She has a family history of father who at 43 from an DC. No known history of coronary artery disease. No history of previous myocardial infarction. No history of heart failure. History of valvular heart disease, MVP. No known arrhythmia. Reports history of echo years ago at [place]. No prior stress test, or left heart [...] acute cardiomegaly findings. Hyperinflation. Diego Goldberg MD [address] [place], [address], [facility] 10/21/2018 01:21:30 05/07/2019 text/html 05/07/19 CC: Abnormal EKG 62 year-old woman with history of MVP, HTN, presents for cardiac consultation with a chief complaint of dyspnea on exertion, and has abnormal EKG. Patient stated having EKG done at [facility]. She was at her OB on 08/11/18 and was told she had an extra heart beat, which is new. She went to [place] as an Outpatient and had an EKG, blood work and CXR which were negative except for EKG showing PVC. She has a family history of father who at 43 from an DC. No known history of coronary artery disease. No history of previous myocardial infarction. No history of heart failure. History of valvular heart disease, MVP. No known arrhythmia. Reports history of echo years ago at [place]. No prior stress test, or left heart [...] 97,BUN 18, CR 0.6, EKG, 05/07/19: Anteroseptal DC, age, undetermined. Poor R progrssion in chest [...] Hyperinflation. ` Diego Goldberg MD [address] [place], [address], [facility] 05/07/2019 18:13:26 10/20/2019 [...] of father who at 43 from an DC. She was initially referred for abnormal EKG. Reports having EKG done at [facility]. She was at her OB on 08/11/18 and was told she had an extra heart beat, which is new. She went to [place] as an Outpatient and had an EKG, blood work and CXR which were negative except for EKG showing PVC. Reports history of echo years ago at [place]. No prior stress test, or left heart [...] 97,BUN 18, CR 0.6, EKG, 05/07/19: Anteroseptal DC, age, undetermined. Poor R progrssion in chest [...] cardiomegaly findings. Hyperinflation. ` Diego Goldberg MD [address] [place], [address], [place] - [facility] 10/20/2019 11:16:43 OBGyn Episode No OBEpisode recorded.
--- NOTE | 2025-09-24 16:14 | ED_ITS ---
HPI - Head Injury General Chief complaint: Head Injury <Minnie Anthony PA-C - Last Filed: 09/24/25 17:49> Stated complaint: hit head on SUV sunday; nasal blood elliquis <Minnie Anthony PA-C - Last Filed: 09/24/25 17:49> Time Seen by Provider: 09/24/25 16:14 <Minnie Anthony PA-C - Last Filed: 09/24/25 17:49> Focused HPI: This is a 69 year old female that presents to the ER after a head injury. Reports she hit the right side of her head on the tailgate of her SUV. Reports over the last couple of days she has had nosebleeds, drainage. Reports she has a cough. Reports she takes Eliquis. Denies neck pain, vision changes, vomiting, numbness, weakness. GENERAL: Well-appearing, well-nourished, and in no acute distress. HEAD: Normocephalic, atraumatic. CHEST: Clear to auscultation. ?No respiratory distress. HEART: Regular rate and rhythm.? NEURO: ?Alert and oriented x3. Patient screened in triage and initial orders placed.? ?Additional care and disposition to be based upon?diagnostic testing and treatment. <Minnie Anthony PA-C - Last Filed: 09/24/25 17:49> History of Present Illness HPI Narrative: I agree with the HPI above. <Jennifer Stuart APRN - Last Filed: 09/24/25 17:44> Related Data Home medications: Home Medications ?Medication ?Instructions ?Recorded ?Confirmed ?Last Taken ?Type aspirin 81 mg tablet,delayed 81 mg PO DAILY 06/24/24 0 05/21/25 Unknown History release (Adult Aspirin Regimen) rosuvastatin 20 mg tablet mg PO DAILY 07/29/25 Unknow n History cetirizine 10 mg tablet (Zyrtec) 10 mg PO DAILY PRN Unknown History doxylamine 6.25 mg-PE 5 mg-DM 10 2 tablet PO Q4-6H PRN 09/01/25 Unknown History mg-acetaminophen 325 mg tablet (Vicks NyQuil Severe Cold-Flu) shellie Sleep 3 mg PO DAILY PRN 09/01/25 Unknown History <Minnie Anthony PA-C - Last Filed: 09/24/25 17:49> Allergies/Adverse reactions: Allergies Allergy/AdvReac Type Severity Reaction Status Date / Time No Known Allergies Allergy Verified 09/24/25 15:37 <Minnie Anthony PA-C - Last Filed: 09/24/25 17:49> Review of Systems Review of Systems: All systems reviewed & are unremarkable except as noted in HPI and below <Jennifer Stuart APRN - Last Filed: 09/24/25 17:44> [facility] Past Medical History Medical History: Medical History Atrial fibrillation with RVR Osteopenia Essential (primary) hypertension (07/08/19) Hyperlipidemia (07/08/19) Vitamin D deficiency <Minnie Anthony PA-C - Last Filed: 09/24/25 17:49> Surgical History Surgical History: Surgical History Hx of bladder repair surgery 2020 <Minnie Anthony PA-C - Last Filed: 09/24/25 17:49> Family History Family History: Family History Mother Arthritis Scoliosis Hypertension Sibling Patient's brother is in good health Patient's sister is in good health Hypertension Father Acute myocardial infarction Daughter Hypothyroidism <Minnie Anthony PA-C - Last Filed: 09/24/25 17:49> Social History Social History: Social History Smoking status: Never smoker Second hand tobacco smoke exposure: No Alcohol intake: current Drinks per week: 1 Alcohol use details: occasionally Substance use: never Substance use type: does not use Lack of Transportation: No Lack of Food: Never True Current Housing: I Have Housing Concerned About Future Housing: No Difficulty Paying Gas/Electric Bills: No Difficulty Paying for Meds: No Currently Unemployed: No Education: High School Diploma/GED Difficulty w/ Childcare or Family Care: No Living arrangements: with family Occupation/Education: retired Gender identity (if verbalized by the patient): Female Spiritual care concerns: No Agree to blood products: No <Minnie Anthony PA-C - Last Filed: 09/24/25 17:49> Course Vital Signs Vital signs: Vital Signs Temperature 98.7 F 09/24/25 15:32 Pulse Rate 80 09/24/25 15:32 Respiratory Rate 16 09/24/25 15:32 Blood Pressure 183/97 H 09/24/25 15:32 Pulse Oximetry 98 09/24/25 15:32 Oxygen Delivery Room Air 09/24/25 15:32 Temperature 98.7 F 09/24/25 15:32 Pulse Rate 80 09/24/25 15:32 Respiratory Rate 16 09/24/25 15:32 Blood Pressure 183/97 H 09/24/25 15:32 Pulse Oximetry 98 09/24/25 15:32 Oxygen Delivery Room Air 09/24/25 15:32 <Minnie Anthony PA-C - Last Filed: 09/24/25 17:49> Vital Signs Temperature 98.7 F 09/24/25 15:32 Pulse Rate 80 09/24/25 15:32 Respiratory Rate 16 09/24/25 15:32 Blood Pressure 183/97 H 09/24/25 15:32 Pulse Oximetry 98 09/24/25 15:32 Oxygen Delivery Room Air 09/24/25 15:32 Temperature 98.7 F 09/24/25 15:32 Pulse Rate 80 09/24/25 15:32 Respiratory Rate 16 09/24/25 15:32 Blood Pressure 183/97 H 09/24/25 15:32 Pulse Oximetry 98 09/24/25 15:32 Oxygen Delivery Room Air 09/24/25 15:32 <Jennifer Stuart, DEMETRICE - Last Filed: 09/24/25 17:44> [facility] MDM Narrative Medical decision making narrative: This is a 69 year old female that presents to the ER after a head injury. Reports she hit the right side of her head on the tailgate of her SUV. Reports over the last couple of days she has had nosebleeds, drainage. Reports she has a cough. Reports she takes Eliquis. Denies neck pain, vision changes, vomiting, numbness, weakness. Labs Ordered: None necessary Imaging Ordered: CT brain Medications Ordered: None necessary Results: Patient's CT scan indicates No gross acute intracranial mass effect or hemorrhage. Morales-white attenuation pattern is intact. No large acute ischemic event. Mild chronic microvascular ischemic appearing white matter changes. Mild edematous changes may be present in the lower left frontal scalp region. No large hematoma. Periorbital paranasal calvarial structures appear within normal limits. Diagnosis: Concussion without loss of consciousness, chronic anticoagulation, asymptomatic hypertension, nose bleed Consults: corporate attorney, Dr. Valiente, already established Patient Education/Shared MDM: Results of imaging shared with patient. She reports she has not had any nose bleeds since being here in the emergency department. Patient strongly advised to use Vaseline in her nares at night to help prevent nose bleeds. She was also advised she can try a spray of Afrin VERY SPARINGLY to stop a nose bleed at home. Pt voiced concerns of high blood pressure. Her blood pressure is in the 160/90s at time of examination. She denies any symptoms associated with high blood pressure. Pt was advised to continue taking her currently prescribed dose of Losartan and follow up with her PCP as soon as possible. She will not be discharged home with any new prescriptions. Strict return precautions provided. Patient verbalized understanding and is in agreement with plan. Vital signs stable at time of discharge. All questions answered. <Jennifer Stuart APRN - Last Filed: 09/24/25 17:44> Differential Diagnosis Differential Diagnosis: Subdural hematoma, scalp laceration, concussion without loss of consciousness, asymptomatic hypertension <Jennifer Stuart APRN - Last Filed: 09/24/25 17:44> Imaging Data Attestation: I personally reviewed and interpreted this imaging study as follows: <Jennifer Stuart APRN - Last Filed: 09/24/25 17:44> Radiologist's impression: ITS Impressions Head CT 09/24/25 16:38 IMPRESSION: 1. No gross intracranial mass effect or hemorrhage. <Minnie Anthony PA-C - Last Filed: 09/24/25 17:49> ITS Impressions Head CT 09/24/25 16:38 IMPRESSION: 1. No gross intracranial mass effect or hemorrhage. <Jennifer Stuart APRN - Last Filed: 09/24/25 17:44> Critical Care Time Critical Care Time Critical Care Time: No <Minnie Anthony PA-C - Last Filed: 09/24/25 17:49> Discharge Plan Discharge Clinical Impression: Chronic anticoagulation, Bleeding nose, Asymptomatic hypertension Concussion without loss of consciousness Qualifiers: Encounter type: initial encounter Qualified Code(s): S06.0X0A - Concussion without loss of consciousness, initial encounter <Minnie Anthony PA-C - Last Filed: 09/24/25 17:49> Patient Disposition: Home <RUSS Alvarez Last Filed: 09/24/25 17:49> Condition: Stable <RUSS Alvarez Last Filed: 09/24/25 17:49> Instructions: Antibiotic Form, Concussion (ED) <RUSS Alvarez Last Filed: 09/24/25 17:49> Additional Instructions: Please return to the ER with any worsening symptoms. Follow-up with primary care provider as soon as possible regarding your elevated blood pressure readings. Take all medications as prescribed, including regularly scheduled medications. Please use a spray of Afrin VERY SPARINGLY to stop a nose bleed at home. You can also place Vaseline in each nostril before you go to bed at night. <RUSS Alvarez Last Filed: 09/24/25 17:49> Patient Language: Maori <Minnie Anthony PA-C - Last Filed: 09/24/25 17:49> Prescriptions: No Action rosuvastatin 20 mg tablet PO DAILY aspirin [Adult Aspirin Regimen] 81 mg tablet,delayed release (DR/EC) 81 mg PO DAILY Eliquis 5 mg Tablet 5 mg PO Q12HR Qty: 60 2RF metoprolol succinate [Toprol XL] 25 mg Tablet Extended Release 24 Hr 25 mg PO QAM Qty: 30 2RF fluticasone propionate [Flonase Allergy Relief] 50 mcg/actuation spray,suspension 2 spray intranasal DAILY Qty: 48 1RF Rx Instructions: administer into each nostril losartan 50 mg tablet 50 mg PO DAILY Qty: 90 3RF benzonatate 100 mg capsule See Rx Instructions .ROUTE .COMPLEX Qty: 60 0RF Dose Instruction: TAKE 1 CAPSULE BY MOUTH THREE TIMES DAILY NEEDED FOR COUGH Rx Instructions: TAKE 1 CAPSULE BY MOUTH THREE TIMES DAILY NEEDED FOR COUGH cetirizine [Zyrtec] 10 mg tablet 10 mg PO DAILY PRN Vicks NyQuil Severe Cold-Flu 6.25-5-10-325 mg tablet 2 tablet PO Q4-6H PRN shellie Sleep 3 mg 3 mg PO DAILY PRN Rx Instructions: 1-4 gummy as needed for sleep <Minnie Anthony PA-C - Last Filed: 09/24/25 17:49> Follow-up/Referrals: Willie Valiente MD [Physician, Cardiology] Beatrice Bowman APRN [Primary Care Provider, Internal Medicine] <Minnie Anthony PA-C - Last Filed: 09/24/25 17:49> Time of Disposition: 17:43 <Minnie Anthony PA-C - Last Filed: 09/24/25 17:49> 17:43 <Jennifer Stuart APRN - Last Filed: 09/24/25 17:44>
--- OUTSIDE RECORDS SUMMARY | 2025-09-24 17:22 | XMS_ITS | Clinical Summary ---
Author Organization [facility] Address [address] [place] [address] Phone Care Team Providers Care Insurance Sales Representative Name Role Phone Unavailable Primary Care Provider Unavailabl e Allergies No known active allergies Medications losartan (COZAAR) 50 MG Tablet Take 50 mg by mouth daily. 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
--- OUTSIDE RECORDS SUMMARY | 2025-09-24 17:22 | XMS_ITS | Clinical Summary ---
Author Organization [facility] Address [address] [place] [address] Care Team Providers Care Power Generation Technician Name Role Phone Unavailable Primary Care Provider Unavailabl e Source Comments [facility],non-owned Affiliates and Associated Physician Practices is amultiple site organization consisting of ambulatory clinics and hospital sitesin [place], [place], [place] and [place]. This disclosure is being madepursuant to the Care Everywhere program and may not contain all information available regarding this patient. 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
--- OUTSIDE RECORDS SUMMARY | 2025-09-24 17:22 | XMS_ITS | Encounter Summary ---
Author Organization [facility] Address [address] [place] [address] Care Team Providers Care Biomedical Field Service Engineer Name Role Phone Unavailable Primary Care Provider Unavailabl e Encounter Details Date Type Department Care Team (Late st Contact Info) Description 08/27/2018 Lab Requisition [facility] [address] [place] [address] Tiara Robbins MD [address] [facility] [address] [facility] [place] [address] Social History Tobacco Use Types Packs/Day Years Used Date Smoking Tobacco: Never Assessed Comments Unknown Sex and Gender Information Value Date Recorded Sex Assigned at Not on file Legal Sex Female 6:32 AM RAMP SERVICE MAN Gender Identity Not on file Sexual Orientation Not on file documented as of this encounter Plan of Treatment Not on file documented as of this encounter Procedures Procedure Name Priority Date/Time Associated Diagnosis Comments DERMATOPATH TECHNICAL REPORT Routine 08/23/2018 12:00 AM RAMP SERVICE MAN documented in this encounter Results * DERMATOPATH TECHNICAL REPORT (08/23/2018 12:00 AM RAMP SERVICE MAN) Case Report Dermatopathology Report Case: [id number] Authorizing Provider: Tiara Robbins MD Collected: 08/23/2018 12:00 AM Pathologist: Zenaida Altman MD Received: 08/27/2018 07:01 AM Specimen: Skin, left anterior inferior foss 8 12:16 PM RAMP SERVICE MAN DERMATOPATHOLOGY LABORATORY Addendum 1 At the request of the diagnosing physician, the technical component for MART-1/Melan A was performed by [facility] Dermatopathology [facility]. 12:16 PM [facility] DERMATOPATHOLOGY [facility]OR[facility] Addendum electronically signed by Zenaida Altman MD on 09/02/2018 at 1216 RAMP SERVICE MAN Clinical History R/O Nevus, irregular border, irregular color 12:16 PM [facility] DERMATOPATHOLOGY [facility]ORATORY Gross Description Specimen A: Received is one formalin filled container labeled with the patient's name and designated left anterior inferior foss. The specimen consists of a shave biopsy measuring 6x6x1 mm. Jar 0. [facility]ermat[facility] performed the technical component only. 12:16 PM [facility] DERMATOPATHOLOGY [facility]ORATORY Embedded Images 12:16 PM [facility] DERMATOPATHOLOGY [facility]ORATORY DISCLAIMER An external and internal positive and negative controls are appropriate for the histochemical, immunohistochemical and immunofluorescence stain(s) in this case (if any), except where stated explicitly. The performance characteristics of the stain(s) cited in this report were developed and its performance characteristic determined by the Dermatopathology Laboratory at [facility]. These tests need not be, and therefore are not, approved by the [place] Food and Drug Administration. The tests are used for clinical purposes. 12:16 PM [facility] DERMATOPATHOLOGY LABORATORY at [address] RAMP SERVICE MAN Pathology/Cytolog y TISSUE SPECIMEN FROM SKIN / Unknown 08/23/2018 08/27/2018 7:01 AM RAMP SERVICE MAN Tiara Robbins MD LAB - PATHOLOGY/CYTOLOGY OR DERABLES Edited Result - Final DERMATOPATHOLOGY LABORATORY [facility] - Department of Dermatology [address] [place] [address], [facility] [phone] documented in this encounter Visit Diagnoses Not on filedocumented in this encounter
--- OUTSIDE RECORDS SUMMARY | 2025-09-24 17:22 | XMS_ITS | Encounter Summary ---
Author Organization [facility] Address [address] [place] [address] Care Team Providers Care Cold Storage Superintendent Name Role Phone Tal Cash MD Unavailable [phone] Beatrice Bowman NP Primary Care Provider [phone] Reason for Visit * Reason Onset Date Comments Epistaxis (Nose Bleed) 09/24/2025 Encounter Details Date Type Department Care Team (Late st Contact Info) Description 09/24/2025 Telephone [facility] Medical Group Cardiology [address] [place] [address] Willie Valiente MD [address] [facility] [place] [address] Epistaxis (Nose Bleed) Social History Tobacco Use Types Packs/Day Years Used Date Smoking Tobacco: Never Cigarettes Smokeless Tobacco: Never Alcohol Use Standard Drinks/Week Comments Yes 0 (1 standard drink = 0.6 oz pur e alcohol) RARE Comments Unknown Sex and Gender Information Value Date Recorded Sex Assigned at Not on file Legal Sex Female 8:45 AM TANK CREWMEMBER Gender Identity Not on file Sexual Orientation Not on file documented as of this encounter Miscellaneous Notes * Telephone Encounter - Elizabeth Yepez RN - 09/24/2025 4:21 PM TANK CREWMEMBER Noted. CREWMEMBER * Telephone Encounter - Nathalia Gonsalves - 09/24/2025 3:24 PM CST Pt states that she is going to [place] to have a CT scan done. States that Dr. Sheffield's office sent in the order. Contact [phone] CREWMEMBER * Telephone Encounter - Elizabeth Yepez RN - 09/24/2025 3:02 PM TANK CREWMEMBER Spoke with pt, pt states that on [...] forward to for his recommendations. Please advise. CREWMEMBER * Telephone Encounter - Nathalia Gonsalves - 09/24/2025 1:32 PM CST Pt states that she recently bumped her head and since then anytime she blows her nose there is blood. States that she is concerned because she is on eliquis. Please advise. Thank you. Contact [phone] CREWMEMBER documented in this encounter Plan of Treatment Not on file documented as of this encounter Visit Diagnoses Not on filedocumented in this encounter Care Teams Cold Storage Superintendent Relationship Specialty Start Date End Date Beatrice Bowman NP [address] [place] [address] PCP - General Nurse Practitioner 01/25/24 Tal Cash MD [address] [place] [address] Consulting Physician Rheumatology 02/26/19 documented as of this encounter
--- OUTSIDE RECORDS SUMMARY | 2025-09-24 17:23 | XMS_ITS | Clinical Summary ---
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 09/17/2024 Paroxysmal atrial [...] Type Department Care Team Description 09/24/2025 Telephone [facility] Medical Group Cardiology [address] [place] [address] Willie Valiente MD Epistaxis (Nose Bleed) 09/02/2025 9:45 AM FROTHING MACHINE OPERATOR Office Visit [facility] Medical [facility] Cardiology [address] [place] [address] Willie Valiente MD Paroxysmal atrial fibrillation (HCC) [...] on file Legal Sex Female 8:45 AM FROTHING MACHINE OPERATOR Gender Identity Not on file Sexual Orientation Not on file Last Filed Vital Signs Vital Sign Reading Time Taken Comments Blood Pressure 138/80 09/02/2025 9:38 AM FROTHING MACHINE OPERATOR Pulse 79 09/02/2025 9:38 AM FROTHING MACHINE OPERATOR Temperature - - Respiratory Rate - - Oxygen Saturation 97% 09/02/2025 9:38 AM FROTHING MACHINE OPERATOR Inhaled Oxygen Concentration - - Weight 75 kg (165 lb 6.4 oz) 09/02/2025 9:38 AM FROTHING MACHINE OPERATOR Height 163.8 cm (5' 4.5) 09/02/2025 9:38 AM FROTHING MACHINE OPERATOR Body Mass Index 27.95 09/02/2025 9:38 AM FROTHING MACHINE OPERATOR Plan of Treatment Health Maintenance Due Date [...] LIPID PANEL Routine 09/02/2025 10:2 6 AM FROTHING MACHINE OPERATOR Primary hypertension ELECTROCARDIOGRAM REPORT Routine 025 10:25 AM FROTHING MACHINE OPERATOR Paroxysmal atrial fibrillation (HCC) from Last 3 Months Results * (ABNORMAL) POCT lipid panel (09/02/2025 10:26 AM FROTHING MACHINE OPERATOR) Cholesterol, POC 155 <200 MG/DL HDL, POC 63 >=40 mg/dL Triglycerides, POC 247(A) <=149 mg/dL LDL Cholesterol POC 43 <=129 mg/dL Chol/HDL Ratio, POC 0.7 NONE Non-HDL Cholesterol, POC 93 NONE mg/dL Cholesterol Total, POC 155 30 - 199 mg/dL Capillary blood 09/02/2025 1 0:26 AM FROTHING MACHINE OPERATOR us Willie Valiente MD POINT OF CARE TEST ORDERABLES Fi nal Result * Electrocardiogram Report (09/02/2025 10:25 AM FROTHING MACHINE OPERATOR) us Willie Valiente MD ECG ORDERABLES Edited Result - Final from Last 3 Months Insurance [facility] MEDICARE [facility] MEDICARE [employer] Care Teams Portable Router Operator Relationship Specialty Start Date End Date Beatrice Bowman NP [address] [place] [address] PCP - General Nurse Practitioner 01/25/24 Tal Cash MD [address] [place] [address] Consulting Physician Rheumatology 02/26/19
[2025-09-24 18:32] VITALS: BP 166/90; PULSE 81; RESP 17; O2SAT 98
== END 2025-09-24 18:34 | disposition home or self-care (01) ==
PROVIDERS: Emergency Provider Registered Nurse; PCP Nurse Practitioner Family
DX: S06.0X0A Concussion without loss of consciousness, initial encounter (principal); R04.0 Epistaxis; I10 Essential (primary) hypertension; I48.91 Unspecified atrial fibrillation; E78.5 Hyperlipidemia, unspecified; E55.9 Vitamin D deficiency, unspecified; M85.80 Other specified disorders of bone density and structure, unspecified site; Z79.82 Long term (current) use of aspirin; Z79.01 Long term (current) use of anticoagulants; Z79.899 Other long term (current) drug therapy; W22.8XXA Striking against or struck by other objects, initial encounter
CPT/HCPCS: 70450; 99284